=== PATIENT | female | born 1960 | race Caucasian/White ===

== ENCOUNTER 2017-04-22 14:29 | Emergency (ER) | payer OTHER ==
[~2017-04-22] VITALS: Ht 157.5 cm; Wt 130.0 kg
[~2017-04-22 14:29] MED LIST: ALEV220C2 PO; NEXI40CA PO
[2017-04-22] MEDS ORDERED: ASPIRIN 81 MG CHEW TABLET PO ONE (15:00)
[2017-04-22] MEDS ORDERED: NITROGLYCERIN 0.4 MG SUBL TABLET SL PRN (15:00)
[2017-04-22 15:03] VITALS: BP 184/97
[2017-04-22 15:04] LABS: BASO # 0.1 K/mm3 (0.0-0.2); BASO % 1.2 % (0.0-1.0); EOS # 0.2 K/mm3 (0.0-0.50); EOS % 2.4 % (0.0-3.0); LARGE UNSTAINED CELL # 0.1 K/mm3 (0.0-0.4); LYMPH # 2.9 K/mm3 (1.5-4.5); MEAN CORPUSCULAR HEMOGLOBIN 34.2 pg (27.0-33.0); MEAN CORPUSCULAR HGB CONC 33.6 g/dl (32.0-36.5); MEAN CORPUSCULAR VOLUME 101.8 fl (80.0-96.0); MONO # 0.4 K/mm3 (0.0-0.8); MONO % 5.2 % (0.0-5.0); NEUTROPHILS # 3.5 K/mm3 (1.8-7.7); NEUTROPHILS % 50.1 % (36.0-66.0); PLATELET COUNT, AUTOMATED 248 k/mm3 (150-450); RED CELL DISTRIBUTION WIDTH 12.7 % (11.5-14.5)
[2017-04-22 15:28] LABS: ANION GAP 11 MEQ/L (8-16); BLOOD UREA NITROGEN 10 MG/DL (7-18); CALCIUM LEVEL 8.8 MG/DL (8.5-10.1); CARBON DIOXIDE LEVEL 24 MEQ/L (21-32); CHLORIDE LEVEL 106 MEQ/L (98-107); CREATININE FOR GFR 0.63 MG/DL (0.55-1.02); GLOMERULAR FILTRATION RATE > 60.0 (>51); GLUCOSE, FASTING 105 MG/DL (70-105); POTASSIUM SERUM 3.6 MEQ/L (3.5-5.1); SODIUM LEVEL 141 MEQ/L (136-145)
--- NOTE | 2017-04-22 15:32 | REP ---
Portable chest x-ray: Single view. History: Chest pain. Comparison chest x-ray is from December 31, 2015. Findings: EKG monitoring electrodes overlie the chest. The heart is mildly enlarged unchanged. The lungs are symmetrically aerated and clear. Pulmonary vasculature is not increased. Pleural angles are sharp. No infiltrate is seen. Impression: No active disease. Signed by Nj Frank MD 04/22/2017 04:41 P
[2017-04-22 18:58] VITALS: BP 136/76
[2017-04-22] MEDS ORDERED: IBUP1TAB7 PO (19:01)
--- NOTE | 2017-04-22 21:00 | ECGEPIP ---
Stationary ECG Study [facility] [place] - ED Test Date: 2017-04-22 Pat Name: CRIS CARSON Department: Room: - Gender: F [employer]: atif : 1960 Requested By: TOM Alvarez Order Number: [id number] Reading MD: Sue Kapadia Measurements Intervals [place]ong Rate: 68 P: 43 ND: 152 QRS: 8 QRSD: 71 T: 1 QT: 393 QTc: 418 Interpretive Statements SINUS RHYTHM INCREASED RATE 12/26/13 Electronically Signed On 04-22-2017 20:59:50 EDT by Sue Kapadia
== END 2017-04-22 19:26 | disposition home or self-care (01) ==
LOC: M ED 14:29
DX: R07.89 Other chest pain (principal); K21.9 Gastro-esophageal reflux disease without esophagitis; M54.9 Dorsalgia, unspecified; Z88.5 Allergy status to narcotic agent; Z91.041 Radiographic dye allergy status; Z91.040 Latex allergy status; F17.210 Nicotine dependence, cigarettes, uncomplicated; Z79.899 Other long term (current) drug therapy

== ENCOUNTER → 2017-09-12 | Outpatient (CLI) | payer OTHER ==
[~2017-09-12] MED LIST changes: +IBUP1TAB7 PO
--- NOTE | 2017-09-12 12:04 | REPMRS ---
Patient History The patient states she has not had a clinical breast exam in over a year. Family history of breast cancer in sister at age 50. Digital Woman Screen Mammo: September 12, 2017 - Exam #: [id number] Bilateral CC and MLO view(s) were taken. Technologist: Kitty Lux, Technologist Prior study comparison: August 05, 2016, digital woman screen mammo performed at [facility]. December 21, 2011, digital woman screen mammo performed at [facility]. August 19, 2009, bilateral bilat screen digital mammo performed at [facility]. FINDINGS: The breast tissue is heterogeneously dense. This may lower the sensitivity of mammography. There is a moderate amount of heterogeneously dense fibroglandular tissue which is fairly symmetric. There is no interval development of dominant mass, architectural distortion, or clustered microcalcification typical of malignancy. There has been no change in the appearance of the mammogram from the prior studies. ASSESSMENT: BI-RADS/ACR category 1 mammogram. Negative. Recommendation Routine screening mammogram of both breasts in 1 year (for women over age 40). This mammogram was interpreted with the aid of an FDA-approved computer-aided dectection system. Electronically Signed By: Emanuel Frank MD 09/12/17 [id number]
== END ==
LOC: M WHC 10:01
PROVIDERS: ATTEND Family Medicine
DX: Z12.31 Encounter for screening mammogram for malignant neoplasm of breast (principal)

== ENCOUNTER → 2017-09-16 | Outpatient (CLI) | payer OTHER ==
--- NOTE | 2017-09-16 15:18 | REP ---
MR CERVICAL SPINE WITHOUT CONTRAST: HISTORY: Cervicalgia. COMPARISON: 11/12/2010. A disc bulge is present at the C3-4 level. There is minimal effacement of the thecal sac without spinal cord compression. The C3 neural foramina are patent. A disc bulge is present at the C4-5 level. There is moderate effacement of the thecal sac without spinal cord compression. Uncinate process hypertrophy is present on the left. This produces minimal narrowing of the left C4 neural foramen. The right C4 neural foramen is patent. A disc bulge with associated osteophyte formation is present at the C5-6 level. There is moderate effacement of the thecal sac without spinal cord compression. Bilateral uncinate process hypertrophy is present. This produces mildly and moderate narrowing of the right and left C5 neural foramina respectively. A disc bulge with associated osteophyte formation is present at the C6-7 level. There is moderate effacement of the thecal sac without spinal cord compression. Bilateral uncinate process hypertrophy is present. This produces mild narrowing of the C6 neural foramina. There is no other disc bulge or herniation. The remaining neural foramina are patent. The spinal cord is normal in signal intensity. The C4-5 through C6-7 intervertebral discs are decreased in height consistent with disc degeneration. Increased signal intensity on T2-weighted images is present in the endplates of the C4 through 7 vertebral bodies. This represents degenerative change. IMPRESSION: There is cervical spondylosis at the C3-4 through C6-7 levels without spinal cord compression. The findings at the C3-4 and foraminal narrowing at the C4-5 level are new. There has been progression of the foraminal narrowing at the C5-6 and C6-7 levels. Signed by Doroteo Hyde MD 09/16/2017 03:29 P
== END ==
LOC: M RAD 12:48
PROVIDERS: ATTEND Orthopaedic Surgery
DX: M54.2 Cervicalgia (principal)

== ENCOUNTER 2018-05-16 08:54 | Emergency (ER) | payer OTHER | END 2018-05-16 09:36 | disposition home or self-care (01) | LOC: M ED 08:54 | DX: M54.12 Radiculopathy, cervical region (principal); K21.9 Gastro-esophageal reflux disease without esophagitis; F41.9 Anxiety disorder, unspecified; F17.210 Nicotine dependence, cigarettes, uncomplicated; Z98.890 Other specified postprocedural states; Z91.041 Radiographic dye allergy status; Z91.040 Latex allergy status; Z88.8 Allergy status to other drugs, medicaments and biological substances | CPT/HCPCS: 99282 ==

== ENCOUNTER → 2018-07-04 | Outpatient (CLI) | payer OTHER ==
[~2018-07-04] MED LIST changes: -ALEV220C2 PO; +GASTROGRAFIN SOLUTION 30ML (Q9963) As Ordered; -IBUP1TAB7 PO; -NEXI40CA PO
== END ==
LOC: M RAD 12:05
DX: R19.4 Change in bowel habit (principal); R10.11 Right upper quadrant pain; K58.0 Irritable bowel syndrome with diarrhea
CPT/HCPCS: Q9963

== ENCOUNTER → 2018-07-10 | Outpatient (CLI) | payer OTHER ==
[2018-07-10 11:04] LABS: PLATELET COUNT, AUTOMATED 353 10^3/uL (150-450)
[2018-07-10 11:16] LABS: INR 0.92; PROTHROMBIN TIME 12.4 SECONDS (12.1-14.4)
[2018-07-10 11:17] LABS: PARTIAL THROMBOPLASTIN TIME 27.3 SECONDS (25.4-37.6)
== END ==
LOC: M LAB 10:03
DX: M47.22 Other spondylosis with radiculopathy, cervical region (principal)
CPT/HCPCS: 85049

== ENCOUNTER → 2018-08-15 | Outpatient (CLI) | payer OTHER | LOC: M WHC 14:01 | DX: Z12.31 Encounter for screening mammogram for malignant neoplasm of breast (principal); Z80.3 Family history of malignant neoplasm of breast | CPT/HCPCS: 77067 ==

== ENCOUNTER → 2019-01-10 | Outpatient (REF) | payer OTHER ==
[~2019-01-10] MED LIST changes: +ACET30TAB PO; +ALEV220C2 PO; +ALPR0.25 PO; +GABA-1171 PO; +GABA-843 PO; -GASTROGRAFIN SOLUTION 30ML (Q9963) As Ordered; +IBUP1TAB7 PO; +NEXI40CA PO; +NORCOTAB PO; +PRED10TA2 PO; +TIZA4CAP PO
[2019-01-10 12:52] LABS: APPEARANCE, URINE CLEAR (CLEAR); BACTERIA, URINE AUTO 1+ (NEGATIVE); BILIRUBIN, URINE AUTO NEGATIVE (NEGATIVE); BLOOD, URINE BLOOD NEGATIVE (NEGATIVE); COLOR, URINE YELLOW (YELLOW); GLUCOSE, URINE (UA) AUTO NEGATIVE (NEGATIVE); KETONE, URINE AUTO NEGATIVE (NEGATIVE); LEUKOCYTE ESTERASE, URINE AUTO NEGATIVE (NEGATIVE); NITRITE, URINE AUTO NEGATIVE (NEGATIVE); PROTEIN, URINE AUTO NEGATIVE (NEGATIVE); RBC, URINE AUTO 0 /HPF (0-3); SPECIFIC GRAVITY URINE AUTO 1.013 (1.002-1.035); SQUAMOUS EPITHELIAL CELL UR AU 0 /HPF (0-6); UROBILINOGEN, URINE AUTO 0.2 mg/dL (0.0-2.0); WBC, URINE AUTO 0 /HPF (0-3)
== END ==
LOC: M LAB REF 11:55
PROVIDERS: ATTEND Family Medicine
DX: Z01.818 Encounter for other preprocedural examination (principal)

== ENCOUNTER → 2019-12-10 | Outpatient (CLI) | payer OTHER ==
[~2019-12-10] MED LIST changes: +ACET-716 PO; -ACET30TAB PO; +HYDR-3715 PO; -NORCOTAB PO
--- NOTE | 2019-12-10 09:03 | REPMRS ---
Patient History The patient states she has not had a clinical breast exam in over a year. Family history of breast cancer at age 50 in sister. Digital Woman Screen Mammo: December 10, 2019 - Exam #: [id number] Bilateral CC and MLO view(s) were taken. Technologist: Connie Olmos, Technologist Prior study comparison: August 15, 2018, bilateral digital woman screen mammo performed at [facility]. September 12, 2017, digital woman screen mammo performed at [facility]. August 05, 2016, digital woman screen mammo performed at [facility]. FINDINGS: The breast tissue is heterogeneously dense. This may lower the sensitivity of mammography. There is a moderate amount of heterogeneously dense fibroglandular tissue which is fairly symmetric. There is no interval development of dominant mass, architectural distortion, or grouped microcalcification typical of malignancy. There has been no change in the appearance of the mammogram from the prior studies. 3-D tomosynthesis shows no additional findings. Assessment: BI-RADS/ACR category 1 mammogram. Negative Mammogram. Recommendation Routine screening mammogram of both breasts in 1 year (for women over age 40). This patient's Lifetime Breast Cancer RIsk is estimated at 11.7 %. This mammogram was interpreted with the aid of an FDA-approved computer-aided dectection system. Electronically Signed By: Emanuel Frank MD 12/10/19 [id number]
== END ==
LOC: M WHC 08:16
PROVIDERS: ATTEND Family Medicine
DX: Z12.31 Encounter for screening mammogram for malignant neoplasm of breast (principal)

== ENCOUNTER 2020-11-15 12:45 | Emergency (ER) | payer OTHER ==
[~2020-11-15] VITALS: Ht 157.5 cm; Wt 68.5 kg
[~2020-11-15 12:45] MED LIST changes: +GABA-282 PO; -GABA-843 PO
--- OUTSIDE RECORDS SUMMARY | 2020-11-15 12:55 | CCD ---
Author Author [facility] Organization [facility] Address Unknown Phone Unavailable Care Team Providers Care Content Director Name Role Phone Sudhir Contreras MD Unavailable Unavailable Sudhir Contreras MD Unavailable Unavailable Sudhir Contreras MD Unavailable Unavailable Sudhir Contreras MD Unavailable Unavailable Sudhir Contreras MD Unavailable Unavailable Sudhir Contreras MD Unavailable Unavailable Sudhir Contreras MD Unavailable Unavailable Sudhir oCntreras MD Unavailable Unavailable Sudhir Contreras MD Unavailable Unavailable Sudhir Contreras MD Unavailable Unavailable Sudhir Contreras MD Unavailable Unavailable Sudhir Contreras MD Unavailable Unavailable Sudhir Contreras MD Unavailable Unavailable Sudhir Contreras MD Unavailable Unavailable Sudhir Contreras MD Unavailable Unavailable Sudhir Contreras MD Unavailable Unavailable Sudhir Contreras MD Unavailable Unavailable Sudhir Contreras MD Unavailable Unavailable Sudhir Contreras MD Unavailable Unavailable Sudhir Contreras MD Unavailable Unavailable Sudhir Contreras MD Unavailable Unavailable Sudhir Contreras MD Unavailable Unavailable Sudhir Contreras MD Unavailable Unavailable Sudhir Contreras MD Unavailable Unavailable Sudhir Contreras MD Unavailable Unavailable Sudhir Contreras MD Unavailable Unavailable Sudhir Contreras MD Unavailable Unavailable Sudhir Contreras MD Unavailable Unavailable Sudhir Contreras MD Unavailable Unavailable Sudhir Contreras MD Unavailable Unavailable Sudhir Contreras MD Unavailable Unavailable Sudhir Contreras MD Unavailable Unavailable Sudhir Contreras MD Unavailable Unavailable Sudhir Contreras MD Unavailable Unavailable Sudhir Contreras MD Unavailable Unavailable Sudhir Contreras MD Unavailable Unavailable Sudhir Contreras MD Unavailable Unavailable Sudhir Contreras MD Unavailable Unavailable Sudhir Contreras MD Unavailable Unavailable Sudhir Contreras MD Unavailable Unavailable Sudhir Contreras MD Unavailable Unavailable Sudhir Contreras MD Unavailable Unavailable Sudhir Contreras MD Unavailable Unavailable Sudhir Contreras MD Unavailable Unavailable Sudhir Contreras MD Unavailable Unavailable Sudhir Contreras MD Unavailable Unavailable Sudhir Contreras MD Unavailable Unavailable Sudhir Contreras MD Unavailable Unavailable Sudhir Contreras MD Unavailable Unavailable Sudhir Contreras MD Unavailable Unavailable Sudhri Contreras MD Unavailable Unavailable Sudhir Contreras MD Unavailable Unavailable Sudhir Contreras MD Unavailable Unavailable Sudhir Contreras MD Unavailable Unavailable Sudhir Contreras MD Unavailable Unavailable Sudhir Contreras MD Unavailable Unavailable Sudhir Contreras MD Unavailable Unavailable Sudhir Contreras MD Unavailable Unavailable Sudhir Contreras MD Unavailable Unavailable Sudhir Contreras MD Unavailable Unavailable Sudhir Contreras MD Unavailable Unavailable Sudhir Contreras MD Unavailable Unavailable Sudhir Contreras MD Unavailable Unavailable Sudhir Contreras MD Unavailable Unavailable Sudhir Contreras MD Unavailable Unavailable Sudhir Contreras MD Unavailable Unavailable Sudhir Contreras MD Unavailable Unavailable Sudhir Contreras MD Unavailable Unavailable Sudhir Contreras MD Unavailable Unavailable Sudhir Contreras MD Unavailable Unavailable Sudhir Contreras MD Unavailable Unavailable Sudhir Contreras MD Unavailable Unavailable Sudhir Contreras MD Unavailable Unavailable VanArnam, W Josue PA Unavailable Unavailable VanArnam, W Josue PA Unavailable Unavailable VanArnam, W Josue PA Unavailable Unavailable VanArnam, W Josue PA Unavailable Unavailable VanArnam, W Josue PA Unavailable Unavailable VanArnam, W Josue PA Unavailable Unavailable VanArnam, W Josue PA Unavailable Unavailable VanArnam, W Josue PA Unavailable Unavailable VanArnam, W Josue PA Unavailable Unavailable VanArnam, W Josue PA Unavailable Unavailable VanArnam, W Josue PA Unavailable Unavailable VanArnam, W Josue PA Unavailable Unavailable VanArnam, W Josue PA Unavailable Unavailable VanArnam, W Josue PA Unavailable Unavailable VanArnam, W Josue PA Unavailable Unavailable VanArnam, W Josue PA Unavailable Unavailable VanArnam, W Josue PA Unavailable Unavailable VanArnam, W Josue PA Unavailable Unavailable VanArnam, W Josue PA Unavailable Unavailable VanArnam, W Josue PA Unavailable Unavailable VanArnam, W Josue PA Unavailable Unavailable VanArnam, W Josue PA Unavailable Unavailable VanArnam, W Josue PA Unavailable Unavailable VanArnam, W Josue PA Unavailable Unavailable VanArnam, W Josue PA Unavailable Unavailable VanArnam, W Josue PA Unavailable Unavailable VanArnam, W Josue PA Unavailable Unavailable VanArnam, W Josue PA Unavailable Unavailable VanArnam, W Josue PA Unavailable Unavailable VanArnam, W Josue PA Unavailable Unavailable VanArnam, W Josue PA Unavailable Unavailable VanArnam, W Josue PA Unavailable Unavailable VanArnam, W Josue PA Unavailable Unavailable VanArnam, W Josue PA Unavailable Unavailable VanArnam, W Josue PA Unavailable Unavailable VanArnam, W Josue PA Unavailable Unavailable VanArnam, W Josue PA Unavailable Unavailable VanArnam, W Josue PA Unavailable Unavailable VanArnam, W Josue PA Unavailable Unavailable VanArnam, W Josue PA Unavailable Unavailable Sudhir Contreras MD Unavailable Unavailable Sudhir Contreras MD Unavailable Unavailable Sudhir Contreras MD Unavailable Unavailable Sudhir Contreras MD Unavailable Unavailable Sudhir Contreras MD Unavailable Unavailable Sudhir Contreras MD Unavailable Unavailable Sudhir Contreras Mustapha CESPEDES Unavailable Unavailable White F Mustapha CESPEDES Unavailable Unavailable White F Mustapha CESPEDES Unavailable Unavailable White F Mustapha CESPEDES Unavailable Unavailable White F Mustapha CESPEDES Unavailable Unavailable White F Mustapha CESPEDES Unavailable Unavailable White F Mustapha CESPEDES Unavailable Unavailable White F Mustapha CESPEDES Unavailable Unavailable White F Mustapha CESPEDES Unavailable Unavailable White F Mustapha CESPEDES Unavailable Unavailable White F Mustapha CESPEDES Unavailable Unavailable White F Mustapha CESPEDES Unavailable Unavailable White F Mustapha CESPEDES Unavailable Unavailable White F Mustapha CESPEDES Unavailable Unavailable White F Mustapha CESPEDES Unavailable Unavailable White F Mustapha CESPEDES Unavailable Unavailable White F Mustapha CESPEDES Unavailable Unavailable White F Mustapha CESPEDES Unavailable Unavailable White F Mustapha CESPEDES Unavailable Unavailable White F Mustapha CESPEDES Unavailable Unavailable White F Mustapha CESPEDES Unavailable Unavailable White F Mustapha CESPEDES Unavailable Unavailable White F Mustapha CESPEDES Unavailable Unavailable White F Mustapha CESPEDES Unavailable Unavailable Ben F Mustapha CESPEDES Unavailable Unavailable Ben F Mustapha CESPEDES Unavailable Unavailable Ben F Mustapha CESPEDES Unavailable Unavailable Ben F Mustapha CESPEDES Unavailable Unavailable Ben F Mustapha CESPEDES Unavailable Unavailable Ben F Mustapha CESPEDES Unavailable Unavailable Ben F Mustapha CESPEDES Unavailable Unavailable Ben F Mustapha CESPEDES Unavailable Unavailable Ben F Mustapha CESPEDES Unavailable Unavailable Ben F Mustapha CESPEDES Unavailable Unavailable Ben F Mustapha CESPEDES Unavailable Unavailable Bne F Mustapha CESPEDES Unavailable Unavailable Ben F Mustapha CESPEDES Unavailable Unavailable Ben F Mustapha CESPEDES Unavailable Unavailable Ben F Mustapha CESPEDES Unavailable Unavailable Ben F Mustapha CESPEDES Unavailable Unavailable Ben F Mustapha CESPEDES Unavailable Unavailable Ben F Mustapha CESPEDES Unavailable Unavailable Sudhir Contreras MD Unavailable Unavailable Ben F Mustapha CESPEDES Unavailable Unavailable Ben F Mustapha CESPEDES Unavailable Unavailable Ben F Mustapha CESPEDES Unavailable Unavailable Ben F Mustapha CESPEDES Unavailable Unavailable Ben F Mustapha CESPEDES Unavailable Unavailable Ben F Mustapha CESPEDES Unavailable Unavailable Ben F Mustapha CESPEDES Unavailable Unavailable Ben F Mustapha CESPEDES Unavailable Unavailable eBn F Mustapha CESPEDES Unavailable Unavailable Ben F Mustapha CESPEDES Unavailable Unavailable Ben F Mustapha CESPEDES Unavailable Unavailable Ben F Mustapha CESPEDES Unavailable Unavailable Ben F Mustapha CESPEDES Unavailable Unavailable Ben F Mustapha CESPEDES Unavailable Unavailable Ben F Mustapha CESPEDES Unavailable Unavailable Ben F Mustapha CESPEDES Unavailable Unavailable Sudhir Contreras MD Unavailable Unavailable Ben F Mustapha CESPEDES Unavailable Unavailable Ben F Mustapha CESPEDES Unavailable Unavailable Sudhir Contreras MD Unavailable Unavailable Sudhir Contreras MD Unavailable Unavailable Sudhir Contreras MD Unavailable Unavailable Sudhir Contreras MD Unavailable Unavailable Sudhir Contreras MD Unavailable Unavailable Dille, E Eli DDS Unavailable Unavailable Dille, E Eli DDS Unavailable Unavailable Dille, E Eli DDS Unavailable Unavailable Dille, E Eli DDS Unavailable Unavailable Geni NORIEGA MD Unavailable Unavailable Geni NORIEGA MD Unavailable Unavailable Geni NORIEGA MD Unavailable Unavailable Geni NORIEGA MD Unavailable Unavailable Geni NORIEGA MD Unavailable Unavailable Geni NORIEGA MD Unavailable Unavailable Geni NORIEGA MD Unavailable Unavailable Geni NORIEGA MD Unavailable Unavailable Geni NORIEGA MD Unavailable Unavailable Geni NORIEGA MD Unavailable Unavailable Geni NORIEGA MD Unavailable Unavailable Geni NORIEGA MD Unavailable Unavailable Geni NORIEGA MD Unavailable Unavailable Geni NORIEGA MD Unavailable Unavailable Geni NORIEGA MD Unavailable Unavailable Geni NORIEGA MD Unavailable Unavailable Geni NORIEGA MD Unavailable Unavailable Geni NORIEGA MD Unavailable Unavailable Geni NORIEGA MD Unavailable Unavailable Geni NORIEGA MD Unavailable Unavailable Geni NORIEGA MD Unavailable Unavailable Geni NORIEGA MD Unavailable Unavailable Geni NORIEGA MD Unavailable Unavailable Geni NORIEGA MD Unavailable Unavailable Geni NORIEGA MD Unavailable Unavailable Geni NORIEGA MD Unavailable Unavailable Geni NORIEGA MD Unavailable Unavailable Geni NORIEGA MD Unavailable Unavailable Geni NORIEGA MD Unavailable Unavailable Geni NORIEGA MD Unavailable Unavailable Geni NORIEGA MD Unavailable Unavailable Geni NORIEGA MD Unavailable Unavailable Geni NORIEGA MD Unavailable Unavailable Geni NORIEGA MD Unavailable Unavailable Geni NORIEGA MD Unavailable Unavailable Geni NORIEGA MD Unavailable Unavailable Geni NORIEGA MD Unavailable Unavailable Geni NORIEGA MD Unavailable Unavailable Geni NORIEGA MD Unavailable Unavailable Geni NORIEGA MD Unavailable Unavailable Geni NORIEGA MD Unavailable Unavailable Geni NORIEGA MD Unavailable Unavailable Geni NORIEGA MD Unavailable Unavailable Geni NORIEGA MD Unavailable Unavailable Geni NORIEGA MD Unavailable Unavailable Geni NORIEGA MD Unavailable Unavailable Geni NORIEGA MD Unavailable Unavailable Geni NORIEGA MD Unavailable Unavailable Geni NORIEGA MD Unavailable Unavailable Geni NORIEGA MD Unavailable Unavailable Geni NORIEGA MD Unavailable Unavailable Geni NORIEGA MD Unavailable Unavailable LEANNGeni BANSAL MD Unavailable Unavailable LEANNGeni BANSAL MD Unavailable Unavailable LEANNGeni BANSAL MD Unavailable Unavailable Geni NORIEGA MD Unavailable Unavailable Geni NORIEGA MD Unavailable Unavailable Geni NORIEGA MD Unavailable Unavailable Geni NORIEGA MD Unavailable Unavailable Geni NORIEGA MD Unavailable Unavailable Geni NORIEGA MD Unavailable Unavailable Geni NORIEGA MD Unavailable Unavailable Geni NORIEGA MD Unavailable Unavailable Geni NORIEGA MD Unavailable Unavailable Geni NORIEGA MD Unavailable Unavailable Geni NORIEGA MD Unavailable Unavailable Geni NORIEGA MD Unavailable Unavailable Geni NORIEGA MD Unavailable Unavailable Geni NORIEGA MD Unavailable Unavailable Geni NORIEGA MD Unavailable Unavailable Geni NORIEGA MD Unavailable Unavailable Geni NORIEGA MD Unavailable Unavailable Geni NORIEGA MD Unavailable Unavailable Geni NORIEGA MD Unavailable Unavailable Geni NORIEGA MD Unavailable Unavailable Geni NORIEGA MD Unavailable Unavailable Geni NORIEGA MD Unavailable Unavailable Geni NORIEGA MD Unavailable Unavailable Geni NORIEGA MD Unavailable Unavailable Geni NORIEGA MD Unavailable Unavailable Geni NORIEGA MD Unavailable Unavailable Geni NORIEGA MD Unavailable Unavailable Geni NORIEGA MD Unavailable Unavailable Geni NORIEGA MD Unavailable Unavailable Geni NORIEGA MD Unavailable Unavailable Geni NORIEGA MD Unavailable Unavailable Geni NORIEGA MD Unavailable Unavailable Geni NORIEGA MD Unavailable Unavailable Geni NORIEGA MD Unavailable Unavailable Geni NORIEGA MD Unavailable Unavailable Geni NORIEGA MD Unavailable Unavailable Geni NORIEGA MD Unavailable Unavailable Geni NORIEGA MD Unavailable Unavailable Geni NORIEGA MD Unavailable Unavailable Geni NORIEGA MD Unavailable Unavailable Geni NORIEGA MD Unavailable Unavailable Re-disclosure Warning The records that you are about to access may contain information from federally-assisted alcohol or drug abuse programs. If such information is present, then the following federally mandated warning applies: This information has been disclosed to you from records protected by federal confidentiality rules (42 CFR part 2). The federal rules prohibit you from making any further disclosure of this information unless further disclosure is expressly permitted by the written consent of the person to whom it pertains or as otherwise permitted by 42 CFR part 2. A general authorization for the release of medical or other information is NOT sufficient for this purpose. The Federal rules restrict any use of the information to criminally investigate or prosecute any alcohol or drug abuse patient.The records that you are about to access may contain highly sensitive health information, the redisclosure of which is protected by Article 27-F of the [facility] Public Health law. If you continue you may have access to information: Regarding HIV / AIDS; Provided by facilities licensed or operated by the [facility] Office of Mental Health; or Provided by the [facility] Office for People With Developmental Disabilities. If such information is present, then the following [facility] mandated warning applies: This information has been disclosed to you from confidential records which are protected by state law. State law prohibits you from making any further disclosure of this information without the specific written consent of the person to whom it pertains, or as otherwise permitted by law. Any unauthorized further disclosure in violation of state law may result in a fine or custodial sentence or both. A general authorization for the release of medical or other information is NOT sufficient authorization for further disc losure. Family History Family Member Name Family Member Gender Family Member Status Date o f Status Description Data Source(s) Unknown Unknown Problem [facility] ([facility]) with Mr. Carson from whom she in 1999. (Children are Alirio, Bill, Marlene, Eli). Encounters Encounter Providers Location Date Indications Data Source(s ) Outpatient Attender: SHAW GAUTAMeferrer: Mustapha mcadams MD 06/12/2020 05:49:41 PM EDT [facility] Recurring Patient Attender: SHAW Rodriguez: Mustapha Contreras MD 06/12/2020 12:46:15 PM EDT [facility] Out[facility] Attender: Mustapha Mcintosh 05/28 08:30:00 AM EDT [facility] ([facility] ) Outpatient Attender: Josue Yañez: Mustapha atkinson MD 05/14/2020 03:37:54 PM EDT [facility] Recurring Patient Attender: SHAW NORIEGA MDReferrer: Mustapha Contreras MD 05/14/2020 02:37:34 PM EDT [facility] Out[facility] Referrer: Mustapha Contreras MD 12/18/2019 07:35:00 PM EST [facility] Outpatient Attender: Eli Castromatthew HERRERA 12/12/2019 01:03:00 [facility] Outpatient Referrer: Mustapha Contreras MD 12/07/2019 08:25:00 AM EST [facility] Outpatient Referrer: Mustapha Contreras MD 12/07/2019 08:16:00 AM EST [facility] Outpatient Attender: Eli Garcia PAOLA HERRERA 10/15/2019 09:01:10 [facility] Medications Medication Brand Name Start Date Product Form Dose Route Admi nistrative Instructions Pharmacy Instructions Status Indications Reaction Description Data Source(s) ropinirole 0.25 MG Oral Tablet Ropinirole HCL 12/06/2019 12:00:00 AM EST ORAL active [facility] ([facility]) Insurance Providers Payer name Policy type / Coverage type Policy ID Covered republican ID Covered republican's relationship to howe Policy Howe Plan Information [employer] COMMUNITY PLAN MCDHMO [id number] SP [id number] SELF PAY ONLY [id number] SP [id number] [facility] Comm Plan Medicaid F [id number] SELF [id number] [facility](MCAID) O [id number] S [id number] [facility] Essential Plan P [id number] S [id number] [facility](MCAID) O [id number] O [id number] [facility] COMMUNITY PLAN MCDHMO [id number] SP [id number] [facility] Essential Comm Plan Medicaid F [id number] SELF [id number] [facility] MEDICAID PI PI [facility] Rex/Ess PLS Commercial [id number] Self [id number] [facility] MEDICAID [id number] Jerica [id number] [facility] [id number] Jerica [id number] [facility] PI PI [facility] [id number] Jerica [id number] [facility] Essential Comm Plan Medicaid F [id number] SELF [id number] [facility] Plan Commercial [id number] Self [id number] [facility] Plan Commercial [id number] Self [id number] ANSI-Medicaid [id number] ANSI-Medicaid [id number] ANSI-Medicaid [id number] [facility] Plan Commercial [id number] Self [id number] [facility] Plan Commercial [id number] Self [id number] [facility] Plan Commercial [id number] Self [id number] [facility] Plan Commercial [id number] Self [id number] [facility] Essential Plan P [id number] S [id number] [facility] COMMUNITY PLAN [id number] SP [id number] [facility] Plan Commercial [id number] Self [id number] [facility] Commercial [id number] Self [id number] [facility] Plan Commercial [id number] Self [id number] [facility] Plan Commercial [id number] Self [id number] [facility] Plan Commercial [id number] Self [id number] [facility] CHP/Essential Plan P [id number] S [id number] [facility] Essential Plan Sta Medicaid [id number] Self [id number] [facility] COMMUNITY PLAN MCDHMO [id number] SP [id number] [facility] Rex/Ess PLS Commercial [id number] Self [id number] [facility] [id number] SP [id number] [facility] (NON MEDICAID MANAGED CARE) [id number] SP [id number] [facility] O [id number] S [id number] DEE [id number] SP [id number] 500 [facility] [id number] SP [id number] [facility] HE[facility] P [id number] S [id number] SELF PAY UNAVAILABLE SP UNAVAILA BLE MEDICAID [id number] SP [id number] [facility] [id number] SP [id number] [employer] [id number] SP [id number] SELF PAY [id number] SP [id number] [facility] [id number] [facility] [id number] [id number] [facility]-O/P [id number] [id number] [facility]-O/P [id number] 18 [id number] Surgeries/Procedures Procedure Description Date Indications Data Source(s) Mammogram 12/10/2019 12:00:00 AM EST [facility] ([facility]) Results ID Date Data Source [id number] 10/22/2020 12:00:00 AM EST [facility] Name Value Range Interpretation Code Description Data Mer rce(s) Supporting Document(s) Carestart Rapid COVID Antigen Test Positive [facility] This lab was reported by [facility]. ID Date Data Source [id number] 06/12/2020 05:49:41 PM EDT [facility] Aparna AdamsonOB: 1960Provider: Emeli Noriega: 06/12/2020 History of Present IllnessChronic neck pain The patient complains of pain in the neck . The patient states the pain is continuous. The pain radiates to the right, posterior, shoulder(s), upper arm(s), forearm(s) and C7 . The patient states that the timing of the pain is intermittent . The patient denies signs of bladder dysfunction, bowel dysfunction, cancer/metastasis, infection and myelopathy . Patient's pain is achy . The pain severity is rated 7 out of 10. The pain is aggravated by activity . There is numbness involving the right ring finger and little finger. The numbness is intermittent. Results/Data OtherMRI cervical SOS 06/12/2020: Multilevel DDD. Postop changes C5-C7. Multilevel foraminal narrowing. No significant central stenosisReviewed in detail the results of the diagnostic testing. Reviewed the pertinent applicable clinical implications relating to the patient. Also provided a copy of the results for their personal records. Assessment 1. Neck pain (723.1) (M54.2) 2. Cervical radiculitis (723.4) (M54.12) 3. Numbness (782.0) (R20.0) condition: Chronicetiology: age-related spine/joint degenerationlevels: C6-7, C56 Plan NCS/EMG (SOS) Referral Diagnostic Diagnostic Status: Need Information - FinancialAuthorization Requested for: [id number] Ordered;For: Cervical radiculitis, Neck pain; Ordered By: Shaw Noriega Performed: Order Comments: Please schedule with Dr. Billings. Same day follow up. Due: 26Jun2020; Last Updated By: Chani Arias; 06/12/2020 1:05:11 PMPatient will follow up with: : Dr. Noriega---same day follow upLaterality: : BilateralExtremity : Upper Extremity Plan, Assessment and Recommendation(s) Schedule appointment: After further diagnostic testing is completed and available for review. The various alternatives and treatment options were discussed with pros and cons, risks, and potential benefits of each option reviewed. She wishes to proceed with child day care provider. She requires further work up to include nerve testing. --Bilateral upper extremities for further evaluation of her numbnessreferred for chiropractic treatment This document was dictated and electronically signed using [employer]bet[employer] software. A reasonable attempt at proof reading has been made to minimize errors. Please call with any questions. Signatures Electronically signed by : Shaw Noriega M.D.; Jun 12 2020 5:49PM EST (Author) Name Value Range Interpretation Code Description Data Mer rce(s) Supporting Document(s) ID Date Data Source [id number] 06/12/2020 04:18:00 PM EDT [facility] PATIENT MR#: [id number] NAME: APARNA TINOCO OF : 1960REFERRING PHYSICIAN: Shaw NoriegaEXAM DATE: 06/12/2020EXAM: MRI CERVICAL SPINE WITHOUT CONTRASTINDICATION: Neck pain, C5-7 ACDF 2018COMPARISON: Cervical spine radiographs 05/14/2020, MRI cervical spine 05/30/2018TECHNIQUE: Multiplanar multisequence MR imaging of the cervical spine wasperformed on a 1.5T GE Scanner. Intravenous contrast was not administered.FINDINGS: There is unchanged straightening of the cervical lordosis. No newmalalignment or listhesis. Postsurgical changes of C5-7 ACDF are noted withanterior cortical plate and susceptibility artifact from the orthopedic hardwaremildly limits the regional evaluation. No cervical fracture or aggressivemarrow lesion, within study limits. Multilevel chronic disc desiccation isagain seen involving all cervical disc levels.Visual posterior fossa and cervical cord are normal in signal.C2-3: No disc protrusion, bulge, central canal or foraminal stenosis. Moderateleft greater than right bilateral facet arthropathy.C3-4: Shallow mild broad-based chronic central disc protrusion is overalldecreased in size, with improved minimal flattening of the ventral thecal sac. A tiny central annular tear is now seen. No cord abutment or central canalstenosis. Mild bilateral facet arthropathy and tiny bilateral uncovertebralspurs with interval new moderate right foraminal narrowing.C4-5: Mild broad-based chronic central disc protrusion is unchanged and mildlyflattens the ventral thecal sac. No central canal stenosis. Stable mild leftforaminal narrowing with tiny uncovertebral spurring. No change.C5-6: Status post ACDF. No recurrent disc protrusion or canal stenosis. Smallbilateral uncovertebral spurs cause severe right and moderate to severe leftforaminal narrowing which is overall worsened.C6-7: Status post ACDF. No recurrent disc protrusion. Mild canal stenosispersists. Dorsal uncovertebral spurring with mild right and moderate leftforaminal narrowing.C7-T1: Stable mild disc height loss. Right foraminal chronic discprotrusion-osteophyte complex causes worsened severe right foraminal narrowingwith nerve flattening. No canal stenosis. Stable mild left foraminal narrowingwith additional small left foraminal disc protrusion.No paraspinal soft tissue abnormality.IMPRESSION:1. Postsurgical changes of interval C5-7 ACDF. Mild residual C6-7 centralcanal stenosis and moderate left and mild right foraminal narrowing, although nodisc protrusion.2. Overall mildly worsened moderate to severe C5-6 bilateral foraminalnarrowing with uncovertebral spurring.3. Worsened severe right C7-T1 foraminal stenosis with chronic right foraminaldisc-osteophyte complex and stable mild left foraminal narrowing with small leftrenal disc protrusion.4. Interval regression of C3-4 shallow chronic central disc protrusion withtiny annular tear now seen and uncovertebral spurring with interval new moderateright foraminal narrowing.5. Stable C4-5 mild central disc protrusion with mild left foraminal narrowing.Read by: Jose A KirkpatrickTranscribed by: Jose A KirkpatrickTranscribed Date: 06/12/2020 4:18:06 PMElectronically signed by: Jose A KirkpatrickDate signed: 020 4:19:34 PM Name Value Range Interpretation Code Description Data Mer rce(s) Supporting Document(s) ID Date Data Source [id number] 05/27/2020 10:54:00 AM EDT [facility] ([facility]) Name Value Range Interpretation Code Description Data Mer rce(s) Supporting Document(s) Thyrotropin [Units/volume] in Serum or Plasma by Detec tion limit <= 0.05 mIU/L 1.61 uIU/mL 0.36-3.74 [facility] ([facility] ) ID Date Data Source [id number] 05/27/2020 10:54:00 AM EDT [facility] ([facility]) Name Value Range Interpretation Code Description Data Mer rce(s) Supporting Document(s) Triglyceride [Mass/volume] in Serum or Plasma 262 mg/dL 30-150 [facility] ([facility]) Cholesterol in HDL [Mass/volume] in Serum or Plasma 55 mg/dL 35-60 [facility] ([facility]) Cholesterol [Mass/volume] in Serum or Plasma 309 mg/dL 131-200 [facility] ([facility]) Cholesterol in LDL [Mass/volume] in Serum or Plasma by calcu lation 202 CALC 50-159 [facility] ([facility]) ID Date Data Source [id number] 05/27/2020 10:54:00 AM EDT [facility] ([facility]) Name Value Range Interpretation Code Description Data Mer rce(s) Supporting Document(s) Glucose [Mass/volume] in Serum or Plasma 99 mg/dL 74-99 [facility] ([facility]) 100-125 mg/dL PRE-DIABETES/FASTING >126 mg/dL DIABETES/FASTING Sodium [Moles/volume] in Serum or Plasma 140 meq/L 136-145 [facility] ([facility]) Potassium [Moles/volume] in Serum or Plasma 4.5 meq/L 3.5-5.1 [facility] ([facility]) Creatinine 0.8 mg/dL 0.6-1.3 [facility] ([facility]) Urea nitrogen [Mass/volume] in Serum or Plasma 10 mg/dL 7-18 [facility] ([facility]) Alkaline phosphatase isoenzyme [Units/volume] in Serum or Pl asma 48 mg/dL 46-116 [facility] ([facility]) Calcium [Mass/volume] in Serum or Plasma 8.9 mg/dL 8.5-10.1 [facility] ([facility]) Carbon dioxide, total [Moles/volume] in Serum or Plasma 29 meq/L 21 -32 [facility] ([facility]) Chloride [Moles/volume] in Serum or Plasma 101 meq/L 98-107 [facility] ([facility]) Total Bilirubin 0.4 mg/dL 0.2-1.0 [facility] ([facility]) Aspartate aminotransferase [Enzymatic activity/volume] in Serum or Plasma 17 U/L 15-37 [facility] ([facility] ) Alanine aminotransferase [Enzymatic activity/volume] in Seru m or Plasma 30 U/L 12-78 [facility] ([facility]) Glomerular filtration rate/1.73 sq M pre dicted among non-blacks [Volume Rate/Area] in Serum or Plasma by Creatinine-based formula (MDRD) Laboratory test result [facility] ([facility] ) Proteinase 3 Ab [Units/volume] in Serum 7.2 g/dL 6.4-8.2 [facility] ([facility]) A/G Ratio 1.06 CALC 1.00-1.90 [facility]) Albumin [Mass/volume] in Serum or Plasma 3.7 g/dL 3.4-5.0 [facility] ([facility]) Glomerular filtration rate/1.73 sq M pre dicted among blacks [Volume Rate/Area] in Serum or Plasma by Creatinine-based formula (MDRD) Laboratory test result [facility] ([facility]) <content>CHRONIC KIDNEY DISEASE STAGING PER NKF</content>
<content></content>
<content>STAGE I & II GFR >= 60 NORMAL TO MILDLY DECREASED</content>
<content>STAGE III GFR 30-59 MODERATELY DECREASED</content>
<content>STAGE IV GFR 15-29 SEVERELY DECREASED</content>
<content>STAGE V GFR <15 VERY LITTLE GFR LEFT</content>
<content>ESRD GFR <15 ON BRANCH SERVICE REPRESENTATIVE</content>
<content></content> ID Date Data Source [id number] 05/27/2020 10:54:00 AM EDT [facility] ([facility]) Name Value Range Interpretation Code Description Data Mer rce(s) Supporting Document(s) Glucose mean value [Mass/volume] in Blood Estimated fr om glycated hemoglobin 123 mg/dL 60-110 [facility] ([facility] ) Hemoglobin A1c/Hemoglobin.total in Blood 5.9 g/dL 4.8-5.6 [facility] ([facility]) Lab Result Notes: Pre-Diabetes 5.7 - 6.4 % Diabetes = or > 6.5% ID Date Data Source [id number] 05/14/2020 03:37:54 PM EDT [facility]: 1960Provider: Agustin David: 05/14/2020 History of Present IllnessPatient is a 59-year-old female presents to the office with a chief complaint of constant right-sided neck pain which started 4-6 weeks ago without injury. Pain is getting progressively worse. Associated with constant radiating pain along a C7 distribution in the right upper extremity. There is also constant numbness and tingling in the right ring and pinkie fingers. Denies any left upper extremity symptoms. Has been utilizing NSAIDs and self-directed exercising. Results/Data XRays were ordered, obtained and interpreted today in the office. Indication: follow-up post-operative evaluation Site: cervical spine Views: 2 Views, AP/Lateral Standing Impression: Hardware at C5-6 and C6-7 in good position. Assessment 1. Neck pain (723.1) (M54.2) 2. Cervical radiculitis (723.4) (M54.12) Plan Start: methylPREDNISolone 4 MG Oral Tablet Therapy Pack (Medrol); USE DIRECTED Rx By: Josue David; Dispense: 0 Days ; #:1 X 21 Tablet Pack; Refill: 0;For: Health Maintenance; LIZZETH = N; Verified Transmission to Stream5 1870; Last Updated By: Marlys Schmid; 05/14/2020 3:18:02 PM X-Ray I Cervical Spine - 4 views (XRays were ordered, obtained and interpreted today inthe office. Indication: pain/dysfunction.); Status:Complete; Done: Perform:SOS14 (General); Due:[id number]; Last Updated By:Kvng Lombardo; 05/14/2020 2:51:11 PM;Ordered; For:Neck pain; Ordered By:Josue David; MRI (SOS) Referral Diagnostic Diagnostic Status: Need Information - FinancialAuthorization Requested for: [id number] Ordered;For: Cervical spondylosis with radiculopathy, Neck pain; Ordered By: Shaw Noriega Performed: Order Comments: STAT READ - SITE 22 follow up with Leann Due: [id number]; Last Updated By: Stephanie Almeida; 05/14/2020 3:12:02 PMPatient will follow up with: : Leann - same day follow up STAT READMRI Ordered Contrast : 01: without gadoLaterality: : _Not Applicable Plan, Assessment and Recommendation(s) The nature of the diagnosis and various treatment alternatives were discussed today, including invasive, operative, and non- operative options. Patient is status post C5-C6 and C6-7 discectomy/fusion in January 2019. Recent exacerbation of neck pain with radicular symptoms in the right upper extremity without injury. Refractory to NSAIDs and symptoms seem to be getting worse. Provided a prescription for Medrol Dosepak. Recommend further evaluation with MRI cervical spine. Follow-up to review the results. This document was dictated and electronically signed using [employer] software. A reasonable attempt at proof reading has been made to minimize errors. Please call with any questions. Signatures Electronically signed by : Radha Guerin; May 14 2020 3:32PM EST (Author) Electronically signed by : Shaw Noriega M.D.; May 14 2020 3:37PM EST Name Value Range Interpretation Code Description Data Mer rce(s) Supporting Document(s) ID Date Data Source [id number] 12/07/2019 12:00:00 AM EST [facility] Mustapha Contreras MD Patient Name: APARNA [id number] [facility] Date of : 1960[address] Date of Exam: 12/07/2019ALICE Santos [id number]#: Fax: [id number] EXAM: LUMBOSACRAL SPINE (4 VIEWS)CLINICAL INFORMATION: Back pain.Five views.Comparison an abdomen and pelvis CT dated 07/04/2018.There is mild scoliosis convex left.There are surgical clips in the abdominal right upper quadrant.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 The L5-L6 discis unremarkable.IMPRESSION:Six lumbar segments, congenital variant.Mild multi-level degenerative disc disease as described.Mild facet osteoarthritis at L5-6.Sixto Lozada, JUANY/Mumtaz you for referring APARNA CARSON to our office. Electronically Signed - SIXTO LOZADA MD 12/07/19 10:28 Name Value Range Interpretation Code Description Data Mer rce(s) Supporting Document(s) Procedure Vital Signs ID Date Data Source UNK Name Value Range Interpretation Code Description Data Source(s) Body mass index (BMI) [Ratio] 25.2 kg/m2 25.2 k g/m2 [facility] ([facility]) Body weight 138.00 [lb_av] 138.00 [lb_av] [facility] ([facility]) Body height 62 [in_i] 62 [in_i] [facility] ([facility]) 5'2" Heart rate 78 /min 78 /min [facility] ([facility]) Diastolic blood pressure 74 mm[Hg] 74 mm[Hg] [facility] ([facility]) Systolic blood pressure 122 mm[Hg] 122 mm[Hg] [facility] ([facility]) Body mass index (BMI) [Ratio] 27.1 kg/m2 27.1 k g/m2 [facility] ([facility]) Body weight 148.00 [lb_av] 148.00 [facility]_av[facility] Body height 62 [in_i] 62 [in_i] [facility] ([facility]) 5'2" Heart rate 78 /min 78 /min [facility] ([facility]) Diastolic blood pressure 74 mm[Hg] 74 mm[Hg] [facility] ([facility]) Systolic blood pressure 128 mm[Hg] 128 mm[Hg] [facility] ([facility])
--- NOTE | 2020-11-15 13:17 | REP ---
INDICATION: CHEST PAIN. COMPARISON: Comparison chest x-ray April 22, 2017. TECHNIQUE: Portable upright AP chest radiograph. FINDINGS: The lungs are well inflated and free of infiltrate. Pleural angles are sharp. Monitoring electrodes are seen. Heart size is enlarged unchanged. No acute bony abnormality is seen. The patient is status post lower cervical discectomy and fusion plating.. IMPRESSION: Mild cardiomegaly. Otherwise no acute disease. Status post cervical spine fusion.. <Electronically signed by Emanuel Frank > 11/15/20 [id number]
--- OUTSIDE RECORDS SUMMARY | 2020-11-15 13:31 | CCD ---
Author Author [facility] Organization [facility] Address Unknown Phone Unavailable Care Team Providers Care Foxing Closer Name Role Phone Sudhir Contreras MD Unavailable [...] Unavailable Sudhir oCntreras MD Unavailable Unavailable Sudhir Contrersa MD Unavailable Unavailable Sudhir Contreras MD Unavailable [...] W Josue PA Unavailable Unavailable VanArnam, W Ojsue PA Unavailable Unavailable VanArnam, W Josue PA [...] Unavailable Ben F Mustapha CESPEDES Unavailable Unavailable White F [...] Unavailable Geni NORIEGA MD Unavailable Unavailable Geni NROIEGA MD Unavailable Unavailable Geni NORIEGA MD Unavailable [...] is protected by Article 27-F of the [facility] Public Health law. If you continue you may have access to information: Regarding HIV / AIDS; Provided by facilities licensed or operated by the [facility] Office of Mental Health; or Provided by the [facility] Office for People With Developmental Disabilities. If such information is present, then the following [facility] mandated warning applies: This information has been [...] law may result in a fine or fpc sentence or both. A general authorization for the release of medical or other information is NOT sufficient authorization for further disc losure. Family History Family Member Name Family Member Gender Family Member Status Date o f Status Description Data Source(s) Unknown Unknown Problem [facility] ([facility]) with Mr. Carson from whom she in 1999. (Children are Alirio, Bill, Marlene, Eli). Encounters Encounter Providers Location Date Indications Data Source(s ) Outpatient Attender: SHAW GAUTAMeferrer: Mustapha mcadams MD 06/12/2020 05:49:41 PM EDT [facility] Recurring Patient Attender: SHAW Rodriguez: Mustapha Contreras MD 06/12/2020 12:46:15 PM EDT [facility] Outpatient Attender: Mustapha Mcintosh 05/28 08:30:00 AM EDT [facility] ([facility] ) Outpatient Attender: Josue Yañez: Mustapha atkinson MD 05/14/2020 03:37:54 PM EDT [facility] Recurring Patient Attender: SHAW NORIEGA MDReferrer: Mustapha Contreras MD 05/14/2020 02:37:34 PM EDT [facility] Outpatient Referrer: Mustapha Contreras MD 12/18/2019 07:35:00 PM EST [facility] Outpatient Attender: Eli Radha HERRERA 12/12/2019 01:03:00 P M [facility] Outpatient Referrer: Mustapha Contreras MD 12/07/2019 08:25:00 AM EST [facility] Outpatient Referrer: Mustapha Contreras MD 12/07/2019 08:16:00 AM EST [facility] Outpatient Attender: Eli Garcia PAOLA HERRERA 10/15/2019 09:01:10 P M [facility] Medications Medication Brand Name Start Date Product Form Dose Route Admi nistrative Instructions Pharmacy Instructions Status Indications Reaction Description Data Source(s) ropinirole 0.25 MG Oral Tablet Ropinirole HCL 12/06/2019 12:00:00 AM EST ORAL active [facility] ([facility]) Insurance Providers Payer name Policy type / Coverage type Policy ID Covered constitution party ID Covered constitution party's relationship to howe Policy Howe Plan Information HC COMMUNITY PLAN MCDHMO [id number] SP [id number] SELF PAY ONLY [id number] SP [id number] [facility] Comm Plan Medicaid F [id number] SELF [id number] [facility](MCAID) O [id number] S [id number] [facility] Essential Plan P [id number] S [id number] [facility](MCAID) O [id number] O [id number] [facility] COMMUNITY PLAN MCDHMO [id number] SP [id number] [facility] Essential Comm Plan Medicaid F [id number] SELF [id number] [facility] MEDICAID PI PI [facility] Community Rex/Ess PLS Commercial [id number] Self [id number] [facility] MEDICAID [id number] Jerica [id number] [facility] [id number] Jerica [id number] [facility] PI PI [facility] [id number] Jerica [id number] [facility] Essential Comm Plan Medicaid F [id number] SELF [id number] [facility] Community Plan Commercial [id number] Self [id number] [facility] Community Plan Commercial [id number] Self [id number] ANSI-Medicaid [id number] ANSI-Medicaid [id number] ANSI-Medicaid [id number] [facility] Community Plan Commercial [id number] Self [id number] [facility] Community Plan Commercial [id number] Self [id number] [facility] Community Plan Commercial [id number] Self [id number] [facility] Community Plan Commercial [id number] Self [id number] [facility] Essential Plan P [id number] S [id number] [facility] COMMUNITY PLAN [id number] SP [id number] [facility] Community Plan Commercial [id number] Self [id number] [facility] Community Plan Commercial [id number] Self [id number] [facility] Community Plan Commercial [id number] Self [id number] [facility] Community Plan Commercial [id number] Self [id number] [facility] Community Plan Commercial [id number] Self [id number] D [facility] CHP/Essential Plan P [id number] S [id number] [facility] Essential Plan Sta Medicaid [id number] Self [id number] [facility] COMMUNITY PLAN MCDHMO [id number] SP [id number] [facility] Rex/Ess PLS Commercial [id number] Self [id number] [facility] [id number] SP [id number] [facility] [id number] SP [id number] [facility] O [id number] S [id number] DEE [id number] SP [id number] [facility] [id number] SP [id number] [facility] HE[facility] C[facility] P [id number] S [id number] SELF PAY UNAVAILABLE SP UNAVAILA BLE MEDICAID [id number] SP [id number] [facility] PLUS [id number] SP [id number] [employer] PPO [id number] SP [id number] SELF PAY [id number] SP [id number] [facility] [id number] [facility] [id number] 06 [id number] [facility] HEALTH INSURANCE COMPANY-O/P [id number] 18 [id number] [facility]-O/P [id number] 18 [id number] Surgeries/Procedures Procedure Description Date Indications Data Source(s) Mammogram 12/10/2019 12:00:00 AM EST [facility] ([facility]) Results ID Date Data Source [id number] 10/22/2020 12:00:00 AM EST [facility] Name Value Range Interpretation Code Description Data Mer rce(s) Supporting Document(s) Carestart Rapid COVID Antigen Test Positive [facility] This lab was reported by [facility]. ID Date Data Source [id number] 06/12/2020 05:49:41 PM EDT [facility] Aparna AdamsonOB: 1960Provider: Emeli [...] Status: Need Information - FinancialAuthorization Requested for: [id number] Ordered;For: Cervical radiculitis, Neck pain; Ordered By: [...] option reviewed. 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 She requires further work up to include nerve testing. --Bilateral upper extremities for further evaluation of her numbnessreferred for chiropractic treatment This document was dictated and electronically signed using [employer] software. A reasonable attempt at proof reading has been made to minimize errors. Please call with any questions. Signatures Electronically signed by : Shaw Noriega M.D.; Jun 12 2020 5:49PM EST (Author) Name Value Range Interpretation Code Description Data Mer rce(s) Supporting Document(s) ID Date Data Source [id number] 06/12/2020 04:18:00 PM EDT [facility] PATIENT MR#: [id number] NAME: APARNA TINOCO OF : 1960REFERRING PHYSICIAN: [...] rce(s) Supporting Document(s) ID Date Data Source [id number] 05/27/2020 10:54:00 AM EDT [facility] ([facility]) Name Value Range Interpretation Code Description Data Mer rce(s) Supporting Document(s) Thyrotropin [Units/volume] in Serum or Plasma by Detec tion limit <= 0.05 mIU/L 1.61 uIU/mL 0.36-3.74 [facility] ([facility] ) ID Date Data Source [id number] 05/27/2020 10:54:00 AM EDT [facility] ([facility]) Name Value Range Interpretation Code Description Data Mer rce(s) Supporting Document(s) Triglyceride [Mass/volume] in Serum or Plasma 262 mg/dL 30-150 [facility] ([facility]) Cholesterol in HDL [Mass/volume] in Serum or Plasma 55 mg/dL 35-60 [facility] ([facility]) Cholesterol [Mass/volume] in Serum or Plasma 309 mg/dL 131-200 [facility] ([facility]) Cholesterol in LDL [Mass/volume] in Serum or Plasma by calcu lation 202 CALC 50-159 [facility] ([facility]) ID Date Data Source [id number] 05/27/2020 10:54:00 AM EDT [facility] ([facility]) Name Value Range Interpretation Code Description Data Mer rce(s) Supporting Document(s) Glucose [Mass/volume] in Serum or Plasma 99 mg/dL 74-99 [facility] ([facility]) 100-125 mg/dL PRE-DIABETES/FASTING >126 mg/dL DIABETES/FASTING Sodium [Moles/volume] in Serum or Plasma 140 meq/L 136-145 [facility] ([facility]) Potassium [Moles/volume] in Serum or Plasma 4.5 meq/L 3.5-5.1 [facility] ([facility]) Creatinine 0.8 mg/dL 0.6-1.3 [facility] ([facility] Urea nitrogen [Mass/volume] in Serum or Plasma 10 mg/dL 7-18 [facility] ([facility]) Alkaline phosphatase isoenzyme [Units/volume] in Serum or Pl asma 48 mg/dL 46-116 [facility] ([facility]) Calcium [Mass/volume] in Serum or Plasma 8.9 mg/dL 8.5-10.1 [facility] ([facility]) Carbon dioxide, total [Moles/volume] in Serum or Plasma 29 meq/L 21 -32 [facility] ([facility]) Chloride [Moles/volume] in Serum or Plasma 101 meq/L 98-107 [facility] ([facility]) Total Bilirubin 0.4 mg/dL 0.2-1.0 [facility] ([facility]) Aspartate aminotransferase [Enzymatic activity/volume] in Serum or Plasma 17 U/L 15-37 [facility] ([facility] ) Alanine aminotransferase [Enzymatic activity/volume] in Seru m or Plasma 30 U/L 12-78 [facility] ([facility]) Glomerular filtration rate/1.73 sq M pre dicted among non-blacks [Volume Rate/Area] in Serum or Plasma by Creatinine-based formula (MDRD) Laboratory test result [facility] Proteinase 3 Ab [Units/volume] in Serum 7.2 g/dL 6.4-8.2 [facility] ([facility]) A/G Ratio 1.06 CALC 1.00-1.90 [facility]) Albumin [Mass/volume] in Serum or Plasma 3.7 g/dL 3.4-5.0 [facility] ([facility]) Glomerular filtration rate/1.73 sq M pre dicted among blacks [Volume Rate/Area] in Serum or Plasma by Creatinine-based formula (MDRD) Laboratory test result [facility] ([facility]) <content>CHRONIC KIDNEY DISEASE STAGING PER NKF</content>
<content></content>
<content>STAGE I & II GFR >= 60 NORMAL TO MILDLY DECREASED</content>
<content>STAGE III GFR 30-59 MODERATELY DECREASED</content>
<content>STAGE IV GFR 15-29 SEVERELY DECREASED</content>
<content>STAGE V GFR <15 VERY LITTLE GFR LEFT</content>
<content>ESRD GFR <15 ON FOOD BEVERAGE SUPERVISOR</content>
<content></content> ID Date Data Source [id number] 05/27/2020 10:54:00 AM EDT [facility] ([facility]) Name Value Range Interpretation Code Description Data Mer rce(s) Supporting Document(s) Glucose mean value [Mass/volume] in Blood Estimated fr om glycated hemoglobin 123 mg/dL 60-110 [facility] ([facility] ) Hemoglobin A1c/Hemoglobin.total in Blood 5.9 g/dL 4.8-5.6 [facility] ([facility]) Lab Result Notes: Pre-Diabetes 5.7 - 6.4 % Diabetes = or > 6.5% ID Date Data Source [id number] 05/14/2020 03:37:54 PM EDT [facility] Cortez: 1960Provider: Agustin [...] Maintenance; LIZZETH = N; [facility] [employer] [place] [employer] 1872; Last Updated By: Marlys Schmid; 05/14/2020 3:18:02 PM X-Ray I Cervical Spine - 4 views (XRays were ordered, obtained and interpreted today inthe office. Indication: pain/dysfunction.); Status:Complete; Done: Perform:SOS14 (General); Due:[id number]; Last Updated By:Kvng Lombardo; 05/14/2020 2:51:11 PM;Ordered; For:Neck pain; Ordered By:Josue David; MRI (SOS) Referral Diagnostic Diagnostic Status: Need Information - FinancialAuthorization Requested for: [id number] Ordered;For: Cervical spondylosis with radiculopathy, Neck pain; Ordered By: Shaw Noriega Performed: Order Comments: STAT READ - SITE 22 follow up with Ines Due: [id number]; Last Updated By: Stephanie Almeida; 05/14/2020 3:12:02 PMPatient will follow up with: : Ines - same day follow up STAT READMRI [...] document was dictated and electronically signed using [employer] software. A reasonable attempt at proof reading has been made to minimize errors. Please call with any questions. Signatures Electronically signed by : Radha Guerin; May 14 2020 3:32PM EST (Author) Electronically signed by : Shaw Noriega M.D.; May 14 2020 3:37PM EST Name Value Range Interpretation Code Description Data Mer rce(s) Supporting Document(s) ID Date Data Source [id number] 12/07/2019 12:00:00 AM EST [facility] Mustapha Contreras MD Patient Name: APARNA CARSON51[birth year]57 [facility] Date of : 1960[address] Date of Exam: 12/07/2019ALICE Santos [id number]#: Fax: [phone] EXAM: LUMBOSACRAL SPINE (4 VIEWS)CLINICAL [...] (BMI) [Ratio] 25.2 kg/m2 25.2 k g/m2 [facility] ([facility]) Body weight 138.00 [lb_av] 138.00 [lb_av] [facility] T ([facility]) Body height 62 [in_i] 62 [in_i] [facility] ([facility]) 5'2" Heart rate 78 /min 78 /min [facility] ([facility]) Diastolic blood pressure 74 mm[Hg] 74 mm[Hg] [facility] ([facility]) Systolic blood pressure 122 mm[Hg] 122 mm[Hg] [facility] ([facility]) Body mass index (BMI) [Ratio] 27.1 kg/m2 27.1 k g/m2 [facility] ([facility]) Body weight 148.00 [lb_av] 148.00 [lb_av] [facility] Body height 62 [in_i] 62 [in_i] [facility] ([facility]) 5'2" Heart rate 78 /min 78 /min [facility] ([facility]) Diastolic blood pressure 74 mm[Hg] 74 mm[Hg] [facility] ([facility]) Systolic blood pressure 128 mm[Hg] 128 mm[Hg] [facility] ([facility])
[2020-11-15 13:33] LABS: BASO # 0.1 10^3/uL (0.0-0.2); BASO % 0.9 % (0.0-1.0); EOS # 0.2 10^3/uL (0.0-0.5); EOS % 2.8 % (0.0-3.0); HEMATOCRIT 41.8 % (36.0-47.0); HEMOGLOBIN 13.6 g/dl (12.0-15.5); LYMPH # 2.9 10^3/uL (1.5-5.0); LYMPH % 42.1 % (24.0-44.0); MEAN CORPUSCULAR HEMOGLOBIN 31.6 pg (27.0-33.0); MEAN CORPUSCULAR HGB CONC 32.5 g/dl (32.0-36.5); MEAN CORPUSCULAR VOLUME 97.2 fl (80.0-96.0); MONO # 0.5 10^3/uL (0.0-0.8); MONO % 7.9 % (0.0-5.0); NEUTROPHILS # 3.1 10^3/uL (1.5-8.5); NEUTROPHILS % 46.2 % (36.0-66.0); PLATELET COUNT, AUTOMATED 270 10^3/uL (150-450); WHITE BLOOD COUNT 6.8 10^3/uL (4.0-10.0)
[2020-11-15 13:43] LABS: INR 0.89; PROTHROMBIN TIME 12.2 SECONDS (12.5-14.3)
[2020-11-15 13:46] LABS: D-DIMER QUANT 538.33 ng/ml (<500)
[2020-11-15] MEDS ORDERED: diphenhydrAMINE 50MG/ML VIAL (J1200) IV STA (13:51)
[2020-11-15] MEDS ORDERED: ISOVUE-370 76% 100ML VIAL As Ordered ONE (13:55)
[2020-11-15] MEDS ORDERED: methylPREDNISolone 125MG 2ML VIAL IV ONE (14:00)
[2020-11-15 14:02] LABS: ALBUMIN 3.6 GM/DL (3.2-5.2); ALT/SGPT 33 U/L (12-78); BILIRUBIN,DIRECT < 0.1 MG/DL (0.0-0.2); BILIRUBIN,TOTAL 0.3 MG/DL (0.2-1.0); BLOOD UREA NITROGEN 14 MG/DL (7-18); CARBON DIOXIDE LEVEL 30 MEQ/L (21-32); CHLORIDE LEVEL 104 MEQ/L (98-107); CK-MB VALUE MASS < 1.0 NG/ML (<3.6); CPK CREATINE PHOSPHOKINASE 51 U/L (26-192); CREATININE FOR GFR 0.74 MG/DL (0.55-1.30); FERRITIN 149 NG/ML (8-252); FREE T4 0.85 NG/DL (0.76-1.46); GLOMERULAR FILTRATION RATE > 60.0 (>45); GLUCOSE, FASTING 94 MG/DL (70-100); LDH LACTATE DEHYDROGENASE 155 U/L (84-246); LIPASE 174 U/L (73-393); MB/CK RELATIVE INDEX 1.96 (< OR =4); POTASSIUM SERUM 4.4 MEQ/L (3.5-5.1); SODIUM LEVEL 139 MEQ/L (136-145); TOTAL PROTEIN 7.1 GM/DL (6.4-8.2); TROPONIN I < 0.02 NG/ML (< 0.10)
[2020-11-15] MEDS ORDERED: PERCOCET 5MG/325MG TAB PO ONE (15:15)
--- NOTE | 2020-11-15 15:44 | REP ---
INDICATION: pleuritic chest pain; elevated dimer. COMPARISON: Comparison chest CT study 26 December 2013.. TECHNIQUE: Contrast dose: 75 ML of Isovue [address] technique: Helical scanning is acquired and overlapping 1.5 mm and contiguous 3 mm axial images are reformatted. In addition, maximum intensity projection and multiplanar re-formation images are generated in sagittal and coronal imaging projections. FINDINGS: There is good opacification in the pulmonary arterial tree. There is no evidence of vessel cut off or filling defect to suggest pulmonary embolus. Homogeneous opacity is seen in the thoracic aorta. There is no evidence of aneurysm or dissection. Lung window settings demonstrate no evidence of infiltrate. No mass or significant pulmonary nodule is appreciated. There is mild linear fibrosis in the right middle lobe anteriorly which is essentially unchanged from the 2014 prior study. No pleural or pericardial effusion is seen. No hilar or mediastinal mass or adenopathy is observed. In the upper abdomen, normal adrenal glands are seen. Clips are noted in the gallbladder fossa. The visualized upper abdominal structures are otherwise unremarkable. No extra thoracic mass or adenopathy is seen. IMPRESSION: No CT evidence of pulmonary embolus. No active cardiopulmonary disease seen. <Electronically signed by Emanuel Frank > 11/15/20 [id number]
[2020-11-15] MEDS ORDERED: PERC5TAB12 PO ×2 (15:53→16:26)
[2020-11-15 16:00] VITALS: BP 139/67
--- NOTE | 2020-11-15 16:43 | ECGEPIP ---
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
== END 2020-11-15 16:06 | disposition home or self-care (01) ==
LOC: M ED 12:45
DX: R07.1 Chest pain on breathing (principal); Z86.19 Personal history of other infectious and parasitic diseases; K21.9 Gastro-esophageal reflux disease without esophagitis; F41.9 Anxiety disorder, unspecified; F17.200 Nicotine dependence, unspecified, uncomplicated; Z88.8 Allergy status to other drugs, medicaments and biological substances; Z91.040 Latex allergy status; Z91.041 Radiographic dye allergy status
CPT/HCPCS: 71045; 71275; 80048; 80076; 82550; 82553; 82728; 83615; 83690; 84439; 84443; 85025; 85379; 85610; 85730; 93005; 93041; 94760; 96374; 96375; 99285; J1200; J2930; Q9967

== ENCOUNTER → 2020-11-28 | Outpatient (REF) | payer OTHER ==
[~2020-11-28] MED LIST changes: +PERC5TAB12 PO
[2020-11-28 18:03] LABS: C REACTIVE PROTEIN QUANTITATIV < 0.30 MG/DL (0.00-0.30); RHEUMATOID FACTOR QUANT < 10.0 IU/ML (<15.0)
[2020-11-28 18:26] LABS: HEPATITIS B SURFACE ANTIGEN NEGATIVE (NEGATIVE)
[2020-11-28 18:55] LABS: HEPATITIS B CORE ANTIBODY IGM NEGATIVE (NEGATIVE); HEPATITIS C VIRUS ABY INDEX 0.1 INDEX (<0.8)
[2020-11-28 18:57] LABS: HEPATITIS A ANTIBODY IGM NEGATIVE (NEGATIVE)
[2020-12-02 02:06] LABS: ANTINUCLEAR ANTIBODIES DIRECT Negative (Negative); CYCLIC CITRULLINATED PEPTIDE 22 units (0-19)
== END ==
LOC: M LAB REF 16:03
PROVIDERS: ATTEND Family Medicine
DX: G25.81 Restless legs syndrome (principal); M79.10 Myalgia, unspecified site

== ENCOUNTER → 2020-12-30 | Outpatient (CLI) | payer OTHER ==
--- NOTE | 2020-12-30 12:06 | REPMRS ---
Patient History The patient states she has not had a clinical breast exam in over a year. Family history of breast cancer at age 50 in sister. Digital Woman Screen Mammo: December 30, 2020 - Exam #: [id number] Bilateral CC and MLO view(s) were taken. Technologist: Saritha Quinteros, Technologist Prior study comparison: December 10, 2019, bilateral digital woman screen mammo performed at [facility]. August 15, 2018, bilateral digital woman screen mammo performed at [facility]. September 12, 2017, digital woman screen mammo performed at [facility]. FINDINGS: There are scattered fibroglandular densities. The Volpara volumetric breast density category is:B. There is a stable intramammary lymph node again noted projecting in the upper outer quadrant of the right breast. There has been no change in the appearance of the mammogram from the prior studies. There is a mild amount of scattered fibroglandular density which is fairly symmetric. There is no interval development of dominant mass, architectural distortion, or grouped microcalcification suggestive of malignancy. 3-D tomosynthesis shows no additional findings. Assessment: BI-RADS/ACR category 2 mammogram. Benign Findings. Recommendation Routine screening mammogram of both breasts in 1 year (for women over age 40). This patient's [facility] Lifetime Breast Cancer Risk is estimated at 11.3 %. This mammogram was interpreted with the aid of an FDA-approved computer-aided dectection system. Electronically Signed By: Emanuel Frank MD 12/30/20 [id number]
== END ==
LOC: M WHC 10:57
PROVIDERS: ATTEND Family Medicine
DX: Z12.31 Encounter for screening mammogram for malignant neoplasm of breast (principal); Z80.3 Family history of malignant neoplasm of breast

== ENCOUNTER → 2021-02-18 | Outpatient (CLI) | payer OTHER ==
--- NOTE | 2021-02-18 10:15 | REP ---
INDICATION: SMOKER, LUNG SCREENING COMPARISON: 11/15/2020 TECHNIQUE: Axial noncontrast images from the thoracic inlet to the upper abdomen using low-dose lung screening technique (LDCT). FINDINGS: Bilateral lung hernandez are well aerated and clear. Minimal age-related interstitial changes are suggested and similar to prior examination. No acute consolidation, significant nodule, or mass. No effusion. No pneumothorax. Tracheobronchial tree is patent. IMPRESSION: Lung-RADS category 1. No suspicious nodule or mass. Management recommendations include annual low-dose CT surveillance. <Electronically signed by Bin Phillips > 02/18/21 [id number]
== END ==
LOC: M RAD 09:54
PROVIDERS: ATTEND Family Medicine
DX: Z12.2 Encounter for screening for malignant neoplasm of respiratory organs (principal); F17.210 Nicotine dependence, cigarettes, uncomplicated

== ENCOUNTER → 2021-04-13 | Outpatient (REF) | payer OTHER ==
[2021-04-13 17:11] LABS: MAGNESIUM LEVEL 2.4 MG/DL (1.8-2.4); PHOSPHORUS LEVEL 3.8 MG/DL (2.5-4.9)
== END ==
LOC: M SFHCRHEU 14:11
PROVIDERS: ATTEND Internal Medicine
DX: M79.10 Myalgia, unspecified site (principal); R79.89 Other specified abnormal findings of blood chemistry

== ENCOUNTER → 2021-05-11 | Outpatient (CLI) | payer OTHER ==
--- NOTE | 2021-05-11 14:22 | REP ---
INDICATION: PAIN. COMPARISON: None TECHNIQUE: AP pelvis with bilateral AP frog-lateral view each hip FINDINGS: The hip joint spaces are symmetric and relatively well maintained. There is no acute fracture or destructive osseous lesion. There is no buttressing. IMPRESSION: Within normal limits bilateral <Electronically signed by Ayaan Ray > 05/11/21 [id number]
== END ==
LOC: M WUC 11:47
PROVIDERS: ATTEND Internal Medicine
DX: M25.559 Pain in unspecified hip (principal)

== ENCOUNTER → 2021-05-18 | Outpatient (CLI) | payer OTHER ==
[~2021-05-18] MED LIST changes: +READI-CAT 2 As Ordered ONE
--- NOTE | 2021-05-18 16:55 | REP ---
INDICATION: ABD PAIN. COMPARISON: None. TECHNIQUE: Imaging protocol: Computed tomography of the abdomen and pelvis with oral and without IV contrast. Contiguous 3 mm thick axial projection images were obtained through the abdomen and pelvis. 2D sagittal and coronal reconstructions were performed. Radiation optimization: All CT scans at this facility use at least one of these dose optimization techniques: automated exposure control; mA and/or kV adjustment per patient size (includes targeted exams where dose is matched to clinical indication); or iterative reconstruction. FINDINGS: Heart and lung bases: There is a pleuroparenchymal scar in the middle lobe the right lung. The lung bases are otherwise clear. The heart size is upper limits of normal. There is no pericardial effusion. There is calcific vascular disease of the coronary arteries. There are apparent cardiac stents. Liver: Fatty infiltration. Gallbladder: The gallbladder is surgically absent. Spleen: Normal unenhanced appearance. Pancreas: Normal unenhanced appearance. Adrenal glands: Normal unenhanced appearance. Kidneys/bladder: There is a 1 mm stone in an interpolar calyx of the right kidney. The left kidney in urinary bladder of normal unenhanced appearance. Pelvic structures: The uterus is surgically absent. The ovaries are not identified. There is no free fluid the pelvis. There is no pelvic or inguinal lymphadenopathy. GI tract: There is circumferential thickening of the wall of the distal esophagus consistent with esophagitis. There is scattered colonic diverticuli without evidence of acute inflammation. The appendix is surgically absent. Abdominal wall and mesentery: Status post bilateral inguinal hernia repair. There are no abdominal wall defects. There is no mesenteric or retroperitoneal lymphadenopathy. Abdominal aorta and vascular structures: There is calcific vascular disease of the abdominal aorta. Bony structures: There is degenerative disc disease, L3-4 through L5-S1 with narrowing of the disc spaces and marginal osteophytes. There is bilateral facet arthropathy, L4-5 and L5-S1. The SI joints and hips are normal. IMPRESSION: 1. Circumferential thickening of the wall of the distal esophagus consistent with esophagitis. 2. Colonic diverticulosis without diverticulitis. 3. Right nephrolithiasis without obstruction. 4. Fatty liver infiltration. 5. Calcific vascular disease of the thoracoabdominal aorta and coronary arteries. There are cardiac stents. 6. Multilevel lumbar degenerative disc disease. <Electronically signed by Ludwin Harris > 05/18/21 [id number]
== END ==
LOC: M RAD 14:10
PROVIDERS: ATTEND Surgery
DX: K76.0 Fatty (change of) liver, not elsewhere classified (principal); N20.0 Calculus of kidney; R10.84 Generalized abdominal pain

== ENCOUNTER → 2021-06-11 | Outpatient (CLI) | payer OTHER ==
[~2021-06-11] MED LIST changes: +ATOR1TAB19; +CETI-24; +ERGO500029; +FURO20TA2; +NABU-71; +OMEP-221; -READI-CAT 2 As Ordered ONE; +SUCR1TAB56; +TIZA4TAB4
== END ==
LOC: M LABSMTC 11:24
PROVIDERS: ATTEND Anesthesiology
DX: Z01.818 Encounter for other preprocedural examination (principal); Z11.52 Encounter for screening for COVID-19

== ENCOUNTER 2021-06-15 10:59 | Day surgery (SDC) | payer OTHER ==
[~2021-06-15] VITALS: Ht 157.5 cm; Wt 64.4 kg
[~2021-06-15 10:59] MED LIST changes: +LIDOCAINE 2% 100MG/5ML SDV (FOR ANES.) As Ordered ONE; +NS 1,000 ML IV ONE; +propofoL 200 MG/20 ML VIAL As Ordered ONE
--- NOTE | 2021-06-15 13:13 | ROOR ---
Patient Name: Aparna Moore Procedure Date: 06/15/2021 12:59 PM Date of : 1960 Age: 60 Room: [facility] Gender: Female Note Status: Finalized Procedure: Upper GI endoscopy Indications: Generalized abdominal pain, Suspected esophageal reflux Providers: Adria Scott Jr, MD Referring MD: Mustapha Contreras MD Requesting Provider: Medicines: Propofol per Anesthesia Complications: No immediate complications. Procedure: Pre-Anesthesia Assessment: - Prior to the procedure, a History and Physical was performed, and patient medications and allergies were reviewed. The patient is competent. The risks and benefits of the procedure and the sedation options and risks were discussed with the patient. All questions were answered and informed consent was obtained. Patient identification and proposed procedure were verified by the physician and the nurse in the pre-procedure area and in the procedure room. Mental Status Examination: alert and oriented. Airway Examination: normal oropharyngeal airway and neck mobility. Respiratory Examination: clear to auscultation. CV Examination: normal. ASA Grade Assessment: II - A patient with mild systemic disease. After reviewing the risks and benefits, the patient was deemed in satisfactory condition to undergo the procedure. The anesthesia plan was to use moderate sedation / analgesia (conscious sedation). Immediately prior to administration of medications, the patient was re-assessed for adequacy to receive sedatives. The heart rate, respiratory rate, oxygen saturations, blood pressure, adequacy of pulmonary ventilation, and response to care were monitored throughout the procedure. The physical status of the patient was re-assessed after the procedure. The Endoscope was introduced through the mouth, and advanced to the second part of duodenum. The upper GI endoscopy was accomplished without difficulty. The patient tolerated the procedure well. Findings: The upper third of the esophagus, middle third of the esophagus and lower third of the esophagus were normal. Diffuse moderate inflammation characterized by congestion (edema), erythema, friability and granularity was found in the gastric body and in the gastric antrum. Biopsies were taken with a cold forceps for histology. The cardia, gastric fundus, prepyloric region of the stomach and pylorus were normal. Estimated blood loss: none. Impression: - Normal upper third of esophagus, middle third of esophagus and lower third of esophagus. - Gastritis. Biopsied. - Normal cardia, gastric fundus, prepyloric region of the stomach and pylorus. Recommendation: - Discharge patient to home (ambulatory). - Return to my office as previously scheduled. Procedure Code(s): --- Professional --- 61678, Esophagogastroduodenoscopy, flexible, transoral; with biopsy, single or multiple Diagnosis Code(s): --- Professional --- K29.70, Gastritis, unspecified, without bleeding R10.84, Generalized abdominal pain CPT copyright 2019 [employer]. All rights reserved. The codes documented in this report are preliminary and upon disease education specialist review may be revised to meet current compliance requirements. Adria Scott MD Adria Scott Jr, MD 06/15/2021 1:13:02 PM Electronically signed by Adria Scott Jr, MD Number of Addenda: 0 Note Initiated On: 06/15/2021 12:59 PM Estimated Blood Loss: Estimated blood loss: none.
[2021-06-15] MEDS ORDERED: propofoL 200 MG/20 ML VIAL As Ordered ONE (13:39)
--- NOTE | 2021-06-15 13:46 | ROOR ---
Patient Name: Aparna Moore Procedure Date: 06/15/2021 1:00 PM Date of : 1960 Age: 60 Room: [facility] Gender: Female Note Status: Finalized Procedure: Colonoscopy Indications: Generalized abdominal pain Providers: Adria Scott Jr, MD Referring MD: Mustapha Contreras MD Requesting Provider: Medicines: Propofol per Anesthesia Complications: No immediate complications. Procedure: Pre-Anesthesia Assessment: - Prior to the procedure, a History and Physical was performed, and patient medications and allergies were reviewed. The patient is competent. The risks and benefits of the procedure and the sedation options and risks were discussed with the patient. All questions were answered and informed consent was obtained. Patient identification and proposed procedure were verified by the physician and the nurse in the pre-procedure area and in the procedure room. Mental Status Examination: alert and oriented. Airway Examination: normal oropharyngeal airway and neck mobility. Respiratory Examination: clear to auscultation. CV Examination: normal. ASA Grade Assessment: II - A patient with mild systemic disease. After reviewing the risks and benefits, the patient was deemed in satisfactory condition to undergo the procedure. The anesthesia plan was to use moderate sedation / analgesia (conscious sedation). Immediately prior to administration of medications, the patient was re-assessed for adequacy to receive sedatives. The heart rate, respiratory rate, oxygen saturations, blood pressure, adequacy of pulmonary ventilation, and response to care were monitored throughout the procedure. The physical status of the patient was re-assessed after the procedure. The Colonoscope was introduced through the anus and advanced to the cecum, identified by appendiceal orifice and ileocecal valve. The colonoscopy was performed without difficulty. The patient tolerated the procedure well. The quality of the bowel preparation was fair. Findings: The rectum, recto-sigmoid colon, descending colon and transverse colon appeared normal. Four polyps were found in the sigmoid colon, ascending colon and cecum. The polyps were small in size. These polyps were removed with a cold snare. Resection was complete, but the polyp tissue was only partially retrieved. Impression: - Preparation of the colon was fair. - The rectum, recto-sigmoid colon, descending colon and transverse colon are normal. - Four small polyps in the sigmoid colon, in the ascending colon and in the cecum, removed with a cold snare. Complete resection. Partial retrieval. Recommendation: - Discharge patient to home (ambulatory). - Repeat colonoscopy in 5 years for surveillance. Procedure Code(s): --- Professional --- 96541, Colonoscopy, flexible; with removal of tumor(s), polyp(s), or other lesion(s) by snare technique Diagnosis Code(s): --- Professional --- K63.5, Polyp of colon R10.84, Generalized abdominal pain CPT copyright 2019 [employer]. All rights reserved. The codes documented in this report are preliminary and upon coder operator review may be revised to meet current compliance requirements. Adria Scott MD Adria Scott Jr, MD 06/15/2021 1:46:03 PM Electronically signed by Adria Scott Jr, MD Number of Addenda: 0 Note Initiated On: 06/15/2021 1:00 PM Estimated Blood Loss: Estimated blood loss: none.
[2021-06-15] MEDS ORDERED: ONDANSETRON 4MG/2ML VIAL As Ordered ONE (14:05)
[2021-06-15] MEDS ORDERED: ONDANSETRON 4MG/2ML VIAL IV SCH (14:20)
--- NOTE | 2021-06-15 14:54 | REP ---
INDICATION: ABDOMINAL PAIN POST COLONOSCOPY. COMPARISON: None. TECHNIQUE: Two AP portable supine views of abdomen and pelvis. FINDINGS: Air is scattered throughout the GI tract in a nonspecific pattern. There is moderate distention of air-filled colon diffusely. There is no gross free air identified in the abdomen or pelvis. Metallic clips are seen in the right upper quadrant. Multiple phleboliths are seen in the pelvis. IMPRESSION: Moderate distention of the colon diffusely with air. No gross free intraperitoneal air. <Electronically signed by Sixto Mcclain > 06/15/21 [id number]
[2021-06-15 15:00] VITALS: BP 179/83
== END 2021-06-15 15:15 | disposition home or self-care (01) ==
LOC: M OPP 10:59
PROVIDERS: ATTEND Surgery
DX: K63.5 Polyp of colon (principal); R10.84 Generalized abdominal pain; K29.70 Gastritis, unspecified, without bleeding; K21.9 Gastro-esophageal reflux disease without esophagitis; R12 Heartburn; F17.210 Nicotine dependence, cigarettes, uncomplicated; Z79.891 Long term (current) use of opiate analgesic; Z79.899 Other long term (current) drug therapy; Z88.5 Allergy status to narcotic agent; Z91.040 Latex allergy status; Z91.041 Radiographic dye allergy status
CPT/HCPCS: 43239; 45385; 74018; 88305; J2405

== ENCOUNTER → 2021-09-01 | Outpatient (REF) | payer OTHER ==
[~2021-09-01] MED LIST changes: -LIDOCAINE 2% 100MG/5ML SDV (FOR ANES.) As Ordered ONE; -NS 1,000 ML IV ONE; -propofoL 200 MG/20 ML VIAL As Ordered ONE
== END ==
LOC: M SFHCRHEU 12:30
PROVIDERS: ATTEND Internal Medicine
DX: E55.9 Vitamin D deficiency, unspecified (principal)

== ENCOUNTER → 2021-11-19 | Outpatient (REF) | payer OTHER ==
[~2021-11-19] MED LIST changes: -OMEP-221; +OMEP40CA5; +TIZA10TA; -TIZA4TAB4
[2021-11-20 12:17] LABS: FOLATE 9.2 NG/ML; HIV 1&2 SCREEN CENTAUR NEGATIVE (NEGATIVE); VITAMIN B12 LEVEL 447 PG/ML
[2021-11-20 16:08] LABS: Lyme Disease IgG/IgM Antibodie <0.91 ISR (0.00-0.90); Lyme Disease IgM Ab Quantitati <0.80 index (0.00-0.79)
== END ==
LOC: M LAB REF 12:10
PROVIDERS: ATTEND Family Medicine
DX: R53.83 Other fatigue (principal); R41.3 Other amnesia

== ENCOUNTER → 2021-12-21 | Outpatient (REF) | payer OTHER | LOC: M SFHCDERM 19:01 | PROVIDERS: ATTEND Nurse Practitioner Family | DX: C44.309 Unspecified malignant neoplasm of skin of other parts of face (principal) ==

== ENCOUNTER 2022-01-13 12:52 | Outpatient (RCR) | payer OTHER | END 2022-01-14 | LOC: M PT 12:52 | PROVIDERS: ATTEND Orthopaedic Surgery Orthopaedic Surgery of the Spine | DX: M54.2 Cervicalgia (principal); M54.50 Low back pain, unspecified ==

== ENCOUNTER 2022-02-09 14:19 | Outpatient (RCR) | payer OTHER | END 2022-02-13 | LOC: M PT 14:19 | PROVIDERS: ATTEND Orthopaedic Surgery Orthopaedic Surgery of the Spine | DX: M54.2 Cervicalgia (principal); M54.50 Low back pain, unspecified ==

== ENCOUNTER → 2022-06-11 | Outpatient (REF) | payer OTHER | LOC: M SFHCDERM 13:57 | PROVIDERS: ATTEND Nurse Practitioner Family | DX: C44.519 Basal cell carcinoma of skin of other part of trunk (principal) ==

== ENCOUNTER → 2022-06-17 | Outpatient (CLI) | payer OTHER | LOC: M RAD 14:30 | PROVIDERS: ATTEND Family Medicine | DX: I73.9 Peripheral vascular disease, unspecified (principal) ==

== ENCOUNTER → 2022-08-18 | Outpatient (REF) | payer OTHER | LOC: M LAB REF 16:22 | PROVIDERS: ATTEND Family Medicine | DX: M54.50 Low back pain, unspecified (principal) ==

== ENCOUNTER 2022-09-17 17:40 | Emergency (ER) | payer OTHER ==
[~2022-09-17] VITALS: Ht 157.5 cm; Wt 62.7 kg
[2022-09-17] MEDS ORDERED: TRAZ-252 PO (18:13)
[2022-09-17] MEDS ORDERED: ALPR0.25 PO (18:13)
[2022-09-17 19:53] VITALS: BP 159/80
[2022-09-17 19:55] LABS: BASO # 0.1 10^3/uL (0.0-0.2); EOS # 0.1 10^3/uL (0.0-0.5); HEMATOCRIT 46.1 % (36.0-47.0); LYMPH # 3.1 10^3/uL (1.5-5.0); LYMPH % 37.3 % (24.0-44.0); MEAN CORPUSCULAR HGB CONC 32.5 g/dl (32.0-36.5); MEAN CORPUSCULAR VOLUME 98.3 fl (80.0-96.0); MONO # 0.7 10^3/uL (0.0-0.8); MONO % 8.1 % (2.0-8.0); NEUTROPHILS # 4.4 10^3/uL (1.5-8.5); NEUTROPHILS % 52.1 % (36.0-66.0); PLATELET COUNT, AUTOMATED 281 10^3/uL (150-450); RED BLOOD COUNT 4.69 10^6/uL (4.00-5.40); WHITE BLOOD COUNT 8.3 10^3/uL (4.0-10.0)
[2022-09-17 20:41] LABS: PARTIAL THROMBOPLASTIN TIME 26.5 SECONDS (24.8-34.2)
[2022-09-17 20:43] LABS: D-DIMER QUANT 583.58 ng/ml (<500)
[2022-09-17 22:26] LABS: CK-MB VALUE MASS < 1.0 NG/ML (<3.6); LIPASE 46 U/L (12-53)
[2022-09-17 22:28] LABS: BILIRUBIN,DIRECT 0.1 MG/DL (<0.4)
[2022-09-17 22:31] LABS: ALKALINE PHOSPHATASE 47 U/L (46-116); ALT/SGPT 21 U/L (7.0-40); AST/SGOT 20 U/L (<34); BILIRUBIN,TOTAL 0.5 MG/DL (0.3-1.2); BLOOD UREA NITROGEN 12 MG/DL (9-23); CALCIUM LEVEL 8.9 MG/DL (8.3-10.6); CARBON DIOXIDE LEVEL 27 MMOL/L (20-31); CHLORIDE LEVEL 104 MMOL/L (98-107); CPK CREATINE PHOSPHOKINASE 76 U/L (34-145); CREATININE FOR GFR 0.69 MG/DL (0.55-1.30); GLOMERULAR FILTRATION RATE > 60.0 (>45); GLUCOSE, FASTING 99 MG/DL (74-106); MB/CK RELATIVE INDEX 1.31 (< OR =4); POTASSIUM SERUM 4.3 MMOL/L (3.5-5.1); SODIUM LEVEL 138 MMOL/L (136-145); TOTAL PROTEIN 7.2 G/DL (5.7-8.2)
== END 2022-09-17 21:19 | disposition left against medical advice (07) ==
LOC: M ED 17:40
DX: Z53.21 Procedure and treatment not carried out due to patient leaving prior to being seen by health care provider (principal)

== ENCOUNTER → 2022-12-01 | Outpatient (CLI) | payer OTHER ==
[~2022-12-01] MED LIST changes: +TRAZ-252 PO
== END ==
LOC: M WUC 13:13
DX: M79.672 Pain in left foot (principal); M25.511 Pain in right shoulder

== ENCOUNTER → 2023-04-08 | Outpatient (CLI) | payer OTHER | LOC: M WHC 13:14 | PROVIDERS: ATTEND Family Medicine | DX: Z12.31 Encounter for screening mammogram for malignant neoplasm of breast (principal) ==

== ENCOUNTER → 2023-06-21 | Outpatient (CLI) | payer OTHER | LOC: M PLAIMG 09:43 | PROVIDERS: ATTEND Podiatrist Foot & Ankle Surgery | DX: M19.072 Primary osteoarthritis, left ankle and foot (principal) ==

== ENCOUNTER → 2023-08-22 | Outpatient (REF) | payer OTHER | LOC: M LAB REF 16:14 | PROVIDERS: ATTEND Family Medicine | DX: M25.59 Pain in other specified joint (principal); R53.83 Other fatigue ==

== ENCOUNTER → 2023-10-06 | Outpatient (CLI) | payer MEDICARE ==
[~2023-10-06] MED LIST changes: +ALPR0.5T3 PO; +AMIT10TA7 PO; +ATEN25TA PO; -ATOR1TAB19; +ATOR1TAB19 PO; -CETI-24; +CETI-24 PO; -FURO20TA2; +FURO20TA2 PO; +HYDR-643 PO; +LIDO1PAD; -NABU-71; +NABU-71 PO; +OMEP-173 PO; +OXYC-517 PO; +ROPI0.5T33 PO; +SERT50TA29 PO; -SUCR1TAB56; +SUCR1TAB56 PO; -TIZA10TA; +TIZA10TA PO
== END ==
LOC: M WUC 10:00
PROVIDERS: ATTEND Family Medicine
DX: M79.10 Myalgia, unspecified site (principal); G89.29 Other chronic pain

== ENCOUNTER 2023-10-19 09:59 | Day surgery (SDC) | payer MEDICARE ==
[~2023-10-19] VITALS: Ht 157.5 cm; Wt 66.1 kg
[~2023-10-19 09:59] MED LIST changes: +ceFAZolin SOD 2 GM in IV 1 EA IV ONE
[2023-10-19] MEDS ORDERED: LR 1,000 ML IV SCH (10:55)
[2023-10-19] MEDS ORDERED: fentaNYL 100 MCG/2 ML INJECTION As Ordered ONE (11:47)
[2023-10-19] MEDS ORDERED: MIDAZOLAM INJ 2MG/2ML VIAL As Ordered ONE (11:47)
[2023-10-19] MEDS ORDERED: LIDOCAINE 2% 100MG/5ML SDV (FOR ANES.) As Ordered ONE (11:59)
[2023-10-19] MEDS ORDERED: propofoL 200 MG/20 ML VIAL As Ordered ONE ×2 (11:59→13:26)
[2023-10-19] MEDS ORDERED: ACETAMINOPHEN 1000MG 100ML IV BAG As Ordered ONE (12:22)
[2023-10-19 14:10] VITALS: BP 141/76; TEMP 97.4; O2SAT 97
== END 2023-10-19 14:20 | disposition home or self-care (01) ==
LOC: M SDC 09:59
PROVIDERS: ATTEND Podiatrist Foot & Ankle Surgery
DX: M72.2 Plantar fascial fibromatosis (principal); K21.9 Gastro-esophageal reflux disease without esophagitis; E78.00 Pure hypercholesterolemia, unspecified; M19.90 Unspecified osteoarthritis, unspecified site; F41.9 Anxiety disorder, unspecified; G43.909 Migraine, unspecified, not intractable, without status migrainosus; M54.9 Dorsalgia, unspecified; F17.210 Nicotine dependence, cigarettes, uncomplicated; Z91.041 Radiographic dye allergy status; Z88.5 Allergy status to narcotic agent; Z91.040 Latex allergy status; Z79.899 Other long term (current) drug therapy; Z79.891 Long term (current) use of opiate analgesic
CPT/HCPCS: 28288; C1713; J0131; J2250; J3010

== ENCOUNTER → 2023-12-06 | Outpatient (CLI) | payer MEDICARE, OTHER ==
[~2023-12-06] MED LIST changes: -ceFAZolin SOD 2 GM in IV 1 EA IV ONE
== END ==
LOC: M RAD 12:32
PROVIDERS: ATTEND Family Medicine
DX: F17.210 Nicotine dependence, cigarettes, uncomplicated (principal)

== ENCOUNTER → 2024-01-19 | Outpatient (CLI) | payer MEDICARE, OTHER | LOC: M WUC 13:35 | PROVIDERS: ATTEND Nurse Practitioner Family | DX: M19.90 Unspecified osteoarthritis, unspecified site (principal) ==

== ENCOUNTER 2024-03-01 10:10 | Day surgery (SDC) | payer MEDICARE, OTHER ==
[~2024-03-01] VITALS: Ht 157.5 cm; Wt 64.6 kg
[~2024-03-01 10:10] MED LIST changes: +COLA100C5 PO; +FAMO40TA3 PO; +IBUP1TAB6 PO; -LIDO1PAD; +LIDO1PAD TOP; +MECL-136 PO; +VITA1CAP25 PO
[2024-03-01] MEDS: NS 1,000 ML IV ONE (11:55)
[2024-03-01] MEDS ORDERED: fentaNYL 100 MCG/2 ML INJECTION As Ordered ONE (12:23)
[2024-03-01] MEDS ORDERED: LIDOCAINE 2% 100MG/5ML SDV (FOR ANES.) As Ordered ONE (12:24)
[2024-03-01] MEDS ORDERED: propofoL 200 MG/20 ML VIAL As Ordered ONE (12:24)
[2024-03-01 14:00] VITALS: BP 192/102; O2SAT 98
== END 2024-03-01 15:45 | disposition home or self-care (01) ==
LOC: M OPP 10:10
PROVIDERS: ATTEND Surgery
DX: R10.84 Generalized abdominal pain (principal); K29.50 Unspecified chronic gastritis without bleeding; K29.80 Duodenitis without bleeding; D12.4 Benign neoplasm of descending colon; D12.3 Benign neoplasm of transverse colon; D12.2 Benign neoplasm of ascending colon; K21.9 Gastro-esophageal reflux disease without esophagitis; E78.00 Pure hypercholesterolemia, unspecified; Z79.899 Other long term (current) drug therapy; Z79.891 Long term (current) use of opiate analgesic; F17.210 Nicotine dependence, cigarettes, uncomplicated; Z90.710 Acquired absence of both cervix and uterus; Z90.49 Acquired absence of other specified parts of digestive tract; Z88.8 Allergy status to other drugs, medicaments and biological substances; Z91.041 Radiographic dye allergy status
CPT/HCPCS: 43239; 45385; 88305; J3010

== ENCOUNTER → 2024-03-19 | Outpatient (CLI) | payer MEDICARE, OTHER | LOC: M RAD 13:40 | PROVIDERS: ATTEND Family Medicine | DX: I73.9 Peripheral vascular disease, unspecified (principal) ==

== ENCOUNTER → 2024-06-27 | Outpatient (CLI) | payer MEDICARE, OTHER | LOC: M PLAIMG 10:38 | PROVIDERS: ATTEND Physician Assistant | DX: R10.13 Epigastric pain (principal); R14.0 Abdominal distension (gaseous); I70.0 Atherosclerosis of aorta; K40.20 Bilateral inguinal hernia, without obstruction or gangrene, not specified as recurrent ==

== ENCOUNTER → 2024-06-27 | Outpatient (CLI) | payer MEDICARE, OTHER ==
[2024-06-27 13:38] LABS: ALBUMIN 3.5 G/DL (3.2-5.2); ALKALINE PHOSPHATASE 55 U/L (46-116); ALT/SGPT 16 U/L (7.0-40); AST/SGOT 12 U/L (<34); BILIRUBIN,TOTAL 0.4 MG/DL (0.3-1.2); BLOOD UREA NITROGEN 9 MG/DL (9-23); CALCIUM LEVEL 9.4 MG/DL (8.3-10.6); CARBON DIOXIDE LEVEL 29 MMOL/L (20-31); CHLORIDE LEVEL 107 MMOL/L (98-107); CREATININE FOR GFR 0.72 MG/DL (0.55-1.30); GLOMERULAR FILTRATION RATE > 60.0 (>45); GLUCOSE, FASTING 96 MG/DL (74-106); POTASSIUM SERUM 4.5 MMOL/L (3.5-5.1); SODIUM LEVEL 140 MMOL/L (136-145); TOTAL PROTEIN 6.7 G/DL (5.7-8.2)
== END ==
LOC: M PLALAB 11:06
PROVIDERS: ATTEND Physician Assistant
DX: R10.13 Epigastric pain (principal); R14.0 Abdominal distension (gaseous)

== ENCOUNTER → 2024-07-17 | Outpatient (CLI) | payer MEDICARE, OTHER | LOC: M WHC 09:27 | PROVIDERS: ATTEND Family Medicine | DX: Z12.31 Encounter for screening mammogram for malignant neoplasm of breast (principal) ==

== ENCOUNTER → 2024-08-28 | Outpatient (REF) | payer MEDICARE, OTHER ==
[~2024-08-28] MED LIST changes: +GABA-1172 PO; -GABA-282 PO
== END ==
LOC: M SFHCDERM 17:46
PROVIDERS: ATTEND Nurse Practitioner Family
DX: C44.529 Squamous cell carcinoma of skin of other part of trunk (principal)

== ENCOUNTER → 2024-09-21 | Outpatient (CLI) | payer MEDICARE | LOC: M PAIN 13:00 | PROVIDERS: ATTEND Nurse Practitioner Family | DX: M96.1 Postlaminectomy syndrome, not elsewhere classified (principal); M54.50 Low back pain, unspecified; M46.1 Sacroiliitis, not elsewhere classified; G89.29 Other chronic pain; M54.2 Cervicalgia; K21.9 Gastro-esophageal reflux disease without esophagitis; M25.511 Pain in right shoulder; F17.210 Nicotine dependence, cigarettes, uncomplicated; Z79.891 Long term (current) use of opiate analgesic; Z79.899 Other long term (current) drug therapy; Z88.8 Allergy status to other drugs, medicaments and biological substances; Z91.041 Radiographic dye allergy status; Z91.040 Latex allergy status ==

== ENCOUNTER → 2024-09-26 | Outpatient (REF) | payer MEDICARE | LOC: M LAB REF 15:53 | PROVIDERS: ATTEND Surgery | DX: C44.92 Squamous cell carcinoma of skin, unspecified (principal) ==

== ENCOUNTER → 2024-11-05 | Outpatient (CLI) | payer MEDICARE | LOC: M RAD 14:34 | PROVIDERS: ATTEND Nurse Practitioner Family | DX: M46.1 Sacroiliitis, not elsewhere classified (principal); M51.26 Other intervertebral disc displacement, lumbar region; M51.27 Other intervertebral disc displacement, lumbosacral region ==

== ENCOUNTER → 2024-11-16 | Outpatient (CLI) | payer MEDICARE | LOC: M PAIN 13:00 | PROVIDERS: ATTEND Nurse Practitioner Family | DX: M51.16 Intervertebral disc disorders with radiculopathy, lumbar region (principal); M96.1 Postlaminectomy syndrome, not elsewhere classified; M46.1 Sacroiliitis, not elsewhere classified; G89.29 Other chronic pain; E78.2 Mixed hyperlipidemia; K21.9 Gastro-esophageal reflux disease without esophagitis; F17.210 Nicotine dependence, cigarettes, uncomplicated; Z79.891 Long term (current) use of opiate analgesic; Z79.899 Other long term (current) drug therapy; Z91.040 Latex allergy status; Z91.041 Radiographic dye allergy status; Z88.8 Allergy status to other drugs, medicaments and biological substances ==

== ENCOUNTER → 2025-01-18 | Outpatient (CLI) | payer MEDICARE | LOC: M PLAIMG 08:54 | PROVIDERS: ATTEND Pain Medicine Pain Medicine | DX: Z00.00 Encounter for general adult medical examination without abnormal findings (principal); M54.16 Radiculopathy, lumbar region ==

== ENCOUNTER → 2025-04-23 | Outpatient (CLI) | payer MEDICARE ==
[~2025-04-23] MED LIST changes: +AMIT10TA11 PO; -AMIT10TA7 PO
== END ==
LOC: M RAD 09:59
PROVIDERS: ATTEND Family Medicine
DX: F17.210 Nicotine dependence, cigarettes, uncomplicated (principal)

== ENCOUNTER → 2025-07-30 | Outpatient (CLI) | payer MEDICARE ==
[~2025-07-30] MED LIST changes: -IBUP1TAB6 PO; +SFHIBU600 PO
== END ==
LOC: M WUC 13:32
PROVIDERS: ATTEND Psychiatry & Neurology Neurology
DX: R51.9 Headache, unspecified (principal)

== ENCOUNTER → 2025-08-08 | Outpatient (CLI) | payer MEDICARE | LOC: M WHC 12:40 | PROVIDERS: ATTEND Family Medicine | DX: Z12.31 Encounter for screening mammogram for malignant neoplasm of breast (principal); R92.323 Mammographic fibroglandular density, bilateral breasts ==

== ENCOUNTER → 2025-08-26 | Outpatient (CLI) | payer MEDICARE, OTHER | LOC: M PLAIMG 11:49 | PROVIDERS: ATTEND Family Medicine | DX: R91.8 Other nonspecific abnormal finding of lung field (principal) ==

== ENCOUNTER → 2025-09-03 | Outpatient (CLI) | payer MEDICARE | LOC: M WUC 14:45 | PROVIDERS: ATTEND Family Medicine | DX: R05.9 Cough, unspecified (principal) ==

== ENCOUNTER → 2025-09-25 | Outpatient (CLI) | payer MEDICARE ==
[~2025-09-25] MED LIST changes: +VENL37.598 PO
== END ==
LOC: M EKG 08:38
PROVIDERS: ATTEND Podiatrist Foot & Ankle Surgery
DX: Z01.810 Encounter for preprocedural cardiovascular examination (principal)

== ENCOUNTER 2025-10-02 12:35 | Day surgery (SDC) | payer MEDICARE ==
[~2025-10-02] VITALS: Ht 154.9 cm; Wt 71.2 kg
[~2025-10-02 12:35] MED LIST changes: +LIDOCAINE 2% 100 MG/5 ML SDV (FOR ANES.) As Ordered ONE; +MIDAZOLAM INJ 2 MG/2 ML VIAL As Ordered ONE
[2025-10-02] MEDS ORDERED: LR 1,000 ML IV SCH (13:10)
[2025-10-02] MEDS: ceFAZolin SOD 2 GM IV ONCE IV ONE (13:18)
[2025-10-02] MEDS: LIDOCAINE 1% SDV 30 ML VIAL As Ordered ONE (13:21)
[2025-10-02 14:00] VITALS: BP 115/58; TEMP 98; O2SAT 96
== END 2025-10-02 14:05 | disposition home or self-care (01) ==
LOC: M SDC 12:35
PROVIDERS: ATTEND Podiatrist Foot & Ankle Surgery
DX: T84.84XA Pain due to internal orthopedic prosthetic devices, implants and grafts, initial encounter (principal); Y79.2 Prosthetic and other implants, materials and accessory orthopedic devices associated with adverse incidents; E78.00 Pure hypercholesterolemia, unspecified; K21.9 Gastro-esophageal reflux disease without esophagitis; Z79.899 Other long term (current) drug therapy; Z91.040 Latex allergy status; Z91.041 Radiographic dye allergy status; F17.210 Nicotine dependence, cigarettes, uncomplicated; Z90.49 Acquired absence of other specified parts of digestive tract; Z88.8 Allergy status to other drugs, medicaments and biological substances
CPT/HCPCS: 20680; J0665; J0688; J2250; J3010